=== PATIENT | male | born 1955 | race Caucasian/White ===

== ENCOUNTER 2018-12-08 11:47 | Inpatient (IN) | payer BC ==
[~2018-12-08] VITALS: Ht 182.9 cm; Wt 127.0 kg
[~2018-12-08 11:47] MED LIST: LISI-275 PO
[2018-12-08 12:25] LABS: Basophils # (auto) 0.1 uL; Basophils % (auto) 1.6 % (0.0-2.0); Eosinophils # (auto) 0.4 uL; Eosinophils % (auto) 8.7 % (0.0-7.0); Hematocrit 48.5 % (41.0-53.0); Lymphocytes # (auto) 0.4 uL; Lymphocytes % (auto) 9.4 % (10.0-50.0); Mean Corpuscular Hemoglobin 33.5 pg (28.0-32.0); Mean Corpuscular Volume 101.3 fL (80.0-100.0); Monocytes # (auto) 0.6 uL; Monocytes % (auto) 12.5 % (0.0-12.0); Neutrophils # (auto) 3.1 uL; Neutrophils % (auto) 67.8 % (37.0-80.0); Nucleated Red Blood Cells % 0.1 %; Platelet Count (auto) 206 10^3/uL (140-450); Red Blood Cells 4.79 10^6/uL (4.5-5.90); Red Cell Distribution Width 17.1 % (11.8-14.3); White Blood Cell 4.5 10^3/uL (4.4-10.8)
[2018-12-08 12:40] LABS: Alanine Aminotransferase 34 U/L (16-61); Albumin 3.5 g/dL (3.4-5.0); Anion Gap 6 (5-15); Aspartate Aminotransferase 26 U/L (15-37); BUN/Creatinine Ratio 14.9; Blood Urea Nitrogen 36 mg/dL (7-18); Calcium 8.3 mg/dL (8.5-10.1); Carbon Dioxide 27 mmol/L (21-32); Chloride 101 mmol/L (98-107); GFR African American 35 mL/min; GFR Non-African American 29 mL/min; Glucose 105 mg/dL (74-106); Magnesium 2.7 mg/dL (1.6-2.6); Sodium 134 mmol/L (136-145)
[2018-12-08 12:45] LABS: Alkaline Phosphatase 89 U/L (45-117); Bilirubin, Total 0.5 mg/dL (0.2-1.0); Total Protein 7.5 g/dL (6.4-8.2)
[2018-12-08 12:50] LABS: Potassium 6.2 mmol/L (3.5-5.1)
[2018-12-08 14:38] LABS: Sodium 133 mmol/L (136-145)
[2018-12-08 14:39] LABS: Anion Gap 8 (5-15); BUN/Creatinine Ratio 16.5; Blood Urea Nitrogen 36 mg/dL (7-18); Calcium 8.4 mg/dL (8.5-10.1); Carbon Dioxide 23 mmol/L (21-32); Chloride 102 mmol/L (98-107); GFR African American 39 mL/min; GFR Non-African American 33 mL/min; Glucose 98 mg/dL (74-106)
[2018-12-08 14:42] LABS: Potassium 6.1 mmol/L (3.5-5.1)
[2018-12-08] MEDS ORDERED: SODIUM CHLORIDE 0.9% 1,000 ML IVB ONE (15:16)
[2018-12-08] MEDS ORDERED: SODIUM BICARBONATE 8.4% INJ 50ML SYRINGE IV ONE (15:30)
[2018-12-08] MEDS ORDERED: CALCIUM GLUC 4.65meq/50ml D5AE 50 ML IV ONE (15:30)
[2018-12-08] MEDS ORDERED: FUROSEMIDE 20 MG/2 ML VIAL IV ONE (15:30)
[2018-12-08] MEDS ORDERED: DEXTROSE (50%) 50ML SYRG IV ONE (15:30)
[2018-12-08] MEDS ORDERED: InsuLIN REG 1unit/0.01ml Soln (100units/ml) IV ONE (15:30)
[2018-12-08] MEDS ORDERED: MORPHINE SULFATE 4 MG/ML SYR/VIAL IV ONE (17:00)
[2018-12-08] MEDS ORDERED: ONDANSETRON HCL 4 MG/2 ML VIAL IV ONE (17:00)
[2018-12-08] MEDS ORDERED: cefTRIAXone 1GM/50ML D5W 50 ML IV ONE (18:30)
[2018-12-08] MEDS ORDERED: ONDANSETRON HCL 4 MG/2 ML VIAL IV PRN (19:00)
[2018-12-08] MEDS ORDERED: ACETAMINOPHEN 500 MG TAB PO PRN (19:00)
[2018-12-08] MEDS ORDERED: HYDROcodone-ACET 5/325MG TAB PO PRN (19:00)
[2018-12-08] MEDS ORDERED: ALBUTEROL SULF 2.5 MG/0.5ML(0.5%) NEB SOLN NEB ONE ×2 (19:00→19:30)
[2018-12-08] MEDS ORDERED: NITROGLYCERIN 0.4 MG SL TAB SL PRN (19:00)
[2018-12-08] MEDS ORDERED: MORPHINE SULF INJ 2 MG/ML SYRINGE 1ML IV PRN (19:00)
[2018-12-08] MEDS ORDERED: DEXTROSE (50%) 50ML SYRG IV PRN (19:00)
[2018-12-08 20:21] VITALS: BP 111/60
--- NOTE | 2018-12-08 20:21 | NUR ---
Telemetry admit from [facility] admitted to Telemetry unit. Patient oriented to LOLA REDDY, primary RN, unit, room, bed, and unit policies regarding patient care and visiting hours. Patient now on continuous telemetry monitoring, tele box #25 and telemetry reading on arrival to unit is SR 67 with peaked T wave. at bedside. Patient placed on bedside oxygen, weighed by bedscale and encouraged to call if they need something. Bed locked in lowest position, side rails upx2, call light within reach. All questions and concerns addressed, patient verbalized understanding.
[2018-12-08] MEDS: MORPHINE SULF INJ 2 MG/ML SYRINGE 1ML IV PRN (20:53)
[2018-12-08] MEDS ORDERED: FOLIC ACID 1 MG, MULTIPLE VITAMIN 10 ML, MAGNESIUM SULF SDV 50% 8 MEQ, THIAMINE INJ 100... INJ SCH ×5 (21:00)
[2018-12-08 21:39] VITALS: BP 111/60
[2018-12-08] MEDS: CLINDAMYCIN 300MG IV 50 ML IV SCH (21:49)
[2018-12-08] MEDS: DOCUSATE SOD 100 MG CAP PO SCH (21:49)
[2018-12-08] MEDS: InsuLIN REG 1unit/0.01ml Soln (100units/ml) SC SCH (22:00)
--- NOTE | 2018-12-08 22:00 | NUR ---
Marcella Hospitalist for critical potassium of 5.6. Awaiting call back. Addendum: 12/08/18 at 2315 by LOLA REDDY RN Hospitalist Suraj made aware of critical potassium. Orders placed. Will carry out.
[2018-12-08] MEDS: ACCU-CHEK COMFORT CURVE STRIP VI SCH (22:03)
[2018-12-08] MEDS ORDERED: SODIUM ZIRCONIUM CYCL 10 GM PAK PO ONE (23:15)
[2018-12-09] MEDS ORDERED: FURO20TA3 PO (00:40)
[2018-12-09] MEDS ORDERED: SPIR50TA5 PO (00:40)
[2018-12-09] MEDS ORDERED: MELO1TAB56 PO (00:40)
[2018-12-09] MEDS ORDERED: CLIN150C PO (00:40)
[2018-12-09] MEDS ORDERED: FURO40TA4 PO (00:40)
[2018-12-09] MEDS ORDERED: METO-169 PO (00:40)
[2018-12-09] MEDS: chlordiazePOXIDE HCL 5 MG CAP PO PRN ×3 (02:33→23:42)
[2018-12-09 05:45] VITALS: BP 124/64
[2018-12-09] MEDS: CLINDAMYCIN 300MG IV 50 ML IV SCH ×3 (05:47→23:41)
[2018-12-09] MEDS: InsuLIN REG 1unit/0.01ml Soln (100units/ml) SC SCH ×4 (06:40→22:00)
[2018-12-09] MEDS: ACCU-CHEK COMFORT CURVE STRIP VI SCH ×4 (06:40→23:42)
--- NOTE | 2018-12-09 07:59 | NUR ---
Called Laboratory Regarding 4:00am pending orders for labs to be drawn, they will be coming up now.
[2018-12-09 09:18] VITALS: BP 127/69
[2018-12-09 09:29] LABS: Basophils # (auto) 0.1 uL; Eosinophils # (auto) 0.3 uL; Lymphocytes # (auto) 0.4 uL; Mean Corpuscular Hemoglobin 32.9 pg (28.0-32.0); Mean Corpuscular Hgb Conc. 31.9 g/dL (32.0-36.0)
[2018-12-09 09:35] LABS: Basophils % (auto) 1.4 % (0.0-2.0); Eosinophils % (auto) 5.6 % (0.0-7.0); Hematocrit 48.2 % (41.0-53.0); Hemoglobin 15.4 g/dL (13.5-17.5); Lymphocytes % (auto) 8.6 % (10.0-50.0); Mean Corpuscular Volume 102.9 fL (80.0-100.0); Monocytes # (auto) 0.6 uL; Monocytes % (auto) 11.8 % (0.0-12.0); Neutrophils # (auto) 3.5 uL; Neutrophils % (auto) 72.6 % (37.0-80.0); Nucleated Red Blood Cells % 0.2 %; Platelet Count (auto) 187 10^3/uL (140-450); Red Blood Cells 4.68 10^6/uL (4.5-5.90); Red Cell Distribution Width 17.2 % (11.8-14.3); White Blood Cell 4.9 10^3/uL (4.4-10.8)
[2018-12-09 09:48] LABS: BUN/Creatinine Ratio 16.8; Calcium 8.2 mg/dL (8.5-10.1)
--- NOTE | 2018-12-09 09:57 | NUR ---
Critical Lab Lab reported Critical Potassium of 5.7, will kirby attending MD. Patient is asymptomatic at this time.
[2018-12-09 09:58] LABS: Potassium 5.7 mmol/L (3.5-5.1)
[2018-12-09] MEDS ORDERED: FAMOTIDINE 20 MG TAB PO SCH (10:00)
[2018-12-09] MEDS: ENOXAPARIN SOD 40 MG/0.4 ML SYRINGE SC SCH ×2 (10:00→11:00)
[2018-12-09 10:01] LABS: Urine WBC None Seen /hpf (0 - 3)
--- NOTE | 2018-12-09 10:10 | NUR ---
Pageania Syed and was transferred to his phone Received orders, read back and verified regarding critical lab value for potassium.
[2018-12-09] MEDS ORDERED: FUROSEMIDE 20 MG/2 ML VIAL IV ONE (10:15)
[2018-12-09 10:18] LABS: Urine Bacteria NONE SEEN /hpf (None Seen); Urine Blood Negative /uL (Negative)
[2018-12-09] MEDS ORDERED: CALCIUM GLUC 4.65meq/50ml D5AE 50 ML IV ONE (10:30)
[2018-12-09] MEDS ORDERED: SODIUM BICARBONATE 8.4 % INJ 50ML VIAL IV ONE (10:30)
[2018-12-09] MEDS: DOCUSATE SOD 100 MG CAP PO SCH ×2 (10:59→23:41)
[2018-12-09] MEDS: NICOTINE 21MG/24 HR TOPICAL PATCH TD SCH ×2 (11:01→22:23)
--- NOTE | 2018-12-09 11:30 | NUR ---
WOUND CARE NOTE: IN TO SEE PATIENT AT THIS TIME PER WOUND CARE CONSULT REQUEST. PATIENT WAS NOTED UPON ADMIT TO HAVE WOUNDS TO BLE. WOUND PHOTOS TAKEN AT THAT TIME BY BEDSIDE NURSE FOR REFERENCE. PATIENT ADMITTED TO [facility] WITH DIAGNOSIS OF BLE CELLULITIS. CURRENT RON SCORE IS 18. PATIENT IS AMBULATORY, CAN SELF TURN/REPOSITION SELF. PATIENT NOTED TO HAVE PITTING EDEMA (2+) TO BILATERAL FEET. EDEMA WITH INDURATION NOTED TO BILATERAL CALVES. HE HAS ERYTHEMA. MULTIPLE CLOSED BLISTERS NOTED. THERE IS AN OPEN, WEEPING STASIS ULCER NOTED TO EACH CALF. WOUNDS ARE CHRONIC, SPONTANEOUSLY OPEN/CLOSING, PER SPOUSE. WOUNDS ARE DRAINING SEROUS DRAINAGE IN LIGHT AMOUNTS, WOUNDS ARE PARTIAL THICKNESS AT THIS TIME. CLEANSED WITH NS, PATTED DRY WITH STERILE GAUZE. APPLIED THERAHONEY GAUZE. COVERED WITH OPTIFOAM AG, WRAPPED BOTH FEET/LEGS WITH KERLIX, STOCKINETTE. ELEVATED BOTH LEGS WITH PILLOWS, ELEVATED FOOT LEVEL ON BED. SKIN/WOUND CARE PLAN IMPLEMENTED. RECOMMEND: Q 3 DAY/PRN DRESSING CHANGE TO BLE WOUNDS, ELEVATION OF BOTH LEGS UP ONTO PILLOWS, DIETARY CONSULT, SKIN/WOUND CARE PLAN, CONTINUED MONITORING BY WOUND CARE TEAM. Addendum: 12/09/18 at 1834 by Dorothy Wood RN Amended: Links added.
--- NOTE | 2018-12-09 11:50 | NUR ---
Patient IV is causing pain, will have electronic console display operator attempt the IV.
[2018-12-09 13:00] VITALS: BP 131/66
--- NOTE | 2018-12-09 13:06 | NUR ---
Nephrology Consult Called in again Per request of Dr. Syed, the corporate secretary Erick called in the consult, stated "Dr. Simons is avionics systems repairer today". Notified Dr. Syed.
--- NOTE | 2018-12-09 13:58 | NUR ---
PICC/Midline nurse service requested Family has been informed that a midline will be placed for better IV access. PICC line nurse called to say she will be up after her next patient.
[2018-12-09 15:44] LABS: Phosphorus 4.3 mg/dL (2.5-4.90); Uric Acid 9.7 mg/dL (3.5-7.2)
--- NOTE | 2018-12-09 16:29 | NUR ---
Midline Placement: Patient educated on need for midline placement. All risks and benefits explained and all questions and concerns addresses prior to procedure. 18g/10cm midline inserted via right basilic vein using Ultrasound. Sterile technique utilized. Blood return obtained from the lumen and flushed easily with NS using proper technique. Midline secured with saline lock; biodisc and occlusive dressing applied. Primary RN notified. Midline lot # [id number]. x1 attempt
[2018-12-09] MEDS: BUMETANIDE 1mg/4ml VIAL (0.25mg/ml) IV SCH ×2 (16:47→18:00)
[2018-12-09 17:00] VITALS: BP 117/82
[2018-12-09 17:07] LABS: Creatinine, Urine 56 mg/dL (30.0-125.0); Sodium Urine 81 mmol/L (40-220)
--- NOTE | 2018-12-09 17:27 | NUR ---
Discontinued IV to the left hand, pressure held, IV catheter intact, pressure dressing applied. Midline to the right upper arm is being used for IV access
[2018-12-09 17:36] LABS: Alcohol, Urine < 3.0 mg/dL (0-5); Amphetamine Screen, Urine NEGATIVE (NEGATIVE); Barbiturate Scree,Urine NEGATIVE (NEGATIVE); Benzodiazephine Screen, Urine NEGATIVE (NEGATIVE); Cannabinoid Screen, Urine NEGATIVE (NEGATIVE); Cocaine Screen, Urine NEGATIVE (NEGATIVE); Opiate Scree,Urine NEGATIVE (NEGATIVE); Phencyclidine Screen, Urine NEGATIVE (NEGATIVE)
--- NOTE | 2018-12-09 18:00 | NUR ---
Patient Clindamycin dose was missed due to lack of IV access. Will notify Noc RN to resume now that there is IV access.
--- NOTE | 2018-12-09 19:00 | NUR ---
Opening Shift Note Assumed care of patient, awake and alert sitting at the edge of the bed with mild shortness of breath at rest. O2 saturation at 92% on 4L nasal cannula. Instructed on POC and to call for assist PRN, will continue to monitor for changes Q1hr and PRN. Side rails up x2. Bed locked in lowest position. Call light within reach. at bedside.
[2018-12-09 22:00] VITALS: BP 107/84
[2018-12-10] VITALS (89 sets, daily range): BP systolic 78–155; BP diastolic 26–84
--- NOTE | 2018-12-10 00:22 | NUR ---
Low O2 saturation Patient sitting on the side of the bed with nasal cannula removed. Shortness of breath noted with o2 saturation at 78% on RA. Placed back nasal cannula on patient and increased oxygen to 5L nasal cannula. 02 saturation up to 88%. Will page hospitalist to report patient status.
[2018-12-10] MEDS ORDERED: methylPREDNISolone SOD SUCC 125 MG/2 ML VL IV ONE (00:30)
[2018-12-10] MEDS ORDERED: ALBUTEROL SULF 2.5 MG/0.5ML(0.5%) NEB SOLN NEB PRN (00:30)
--- NOTE | 2018-12-10 00:30 | NUR ---
Hospitalist called/paged [employer]CIAL C[employer] MANAGER Chico Ruelas called re: patient respiratory status . Waiting for call back. Continue care.
--- NOTE | 2018-12-10 00:32 | NUR ---
Spoke with Hospitalist HANSA Ruelas. Updated on patient status. Received order of albuterol 2.5 Q4H PRN and solumedrol 125mg IV once. Continue care.
--- NOTE | 2018-12-10 02:40 | NUR ---
Rounds Patient laying in bed with nasal cannula off. O2 saturation at 78% on RA. Replaced patient back to oxymyzer at 8L. O2 saturation remains in the 80's. Will update Hospitalist on patient status.
--- NOTE | 2018-12-10 02:44 | NUR ---
Spoke to hospitalist HANSA Ruelas regarding patient respiratory status. Received STAT Chest xray and ABG. Continue care
--- NOTE | 2018-12-10 02:45 | NUR ---
X-ray tech at bedside
--- NOTE | 2018-12-10 02:46 | NUR ---
Respiratory at bedside for ABG
[2018-12-10] MEDS ORDERED: ETOMIDATE (2MG/ML) 20ML VIAL IV ONE ×2 (03:24→03:26)
[2018-12-10] MEDS ORDERED: SUCCINYLCHOLINE CHLORIDE 20 MG/ML 10ML VIAL IV ONE ×2 (03:24→03:27)
[2018-12-10] MEDS ORDERED: ROCURONIUM 10MG/ML 10ML VIAL IV ONE (03:29)
--- NOTE | 2018-12-10 03:37 | NUR ---
Intubated Patient intubated on floor by HANSA Ruelas.
--- NOTE | 2018-12-10 03:37 | NUR ---
ATTEMPTED BIPAP INTERVENTION PRIOR TO INTUBATION. PT WORE BIPAP FOR A COUPLE OF MINUTES BEFORE REMOVING THE MASK. PT CONFUSED AND AGITATED. PT UNABLE TO VENTILATE EFFICIENTLY AND REFUSED BIPAP. PT INTUBATED BY HANSA GALVAN WITH AN 8.0 ETT AND SECURED BY CASSIDY AT 25 UPPER LIP. CUFF PRESSURE IS FIRM. TUBE PLACEMENT CONFIRMED BY BILATERAL BREATH SOUNDS AND CHEST RISE, POSITIVE CAPNOMETER COLOR CHANGE.
[2018-12-10] MEDS ORDERED: PROPOFOL 100 ML IV ONE (03:40)
--- NOTE | 2018-12-10 03:55 | NUR ---
Endorsed care to ICU nurse Latonia.
--- NOTE | 2018-12-10 03:56 | NUR ---
Transferred patient to ICU
[2018-12-10] MEDS ORDERED: fentaNYL Drip 2500mCg/250mlNS 0 ML IV ONE (04:01)
[2018-12-10] MEDS ORDERED: MIDAZOLAM DRIP 50 mg/50mL 50 ML IV ONE (04:03)
[2018-12-10] MEDS ORDERED: MIDAZOLAM DRIP 50 mg/50mL 50 ML IV SCH (04:04)
--- NOTE | 2018-12-10 04:07 | NUR ---
ICU pt. intubated after admit called regarding patient's respiratory status. Order received for intubation. Respiratory Therapist notified and at bedside. Patient/Family instructed on need for intubation and possible sedation while on ventilator. Patient intubated by RACHELL GALVAN with .08 ETT, 25 at the lip, and OGT/NGT placed. Medications given as follows:
[2018-12-10 04:12] LABS: Eosinophils # (auto) 0.2 uL; Hemoglobin 16.4 g/dL (13.5-17.5); Lymphocytes # (auto) 0.9 uL; Lymphocytes % (auto) 14.1 % (10.0-50.0); Neutrophils # (auto) 4.8 uL; Nucleated Red Blood Cells % 0.1 %; White Blood Cell 6.1 10^3/uL (4.4-10.8)
[2018-12-10 04:14] LABS: Basophils # (auto) 0.1 uL; Basophils % (auto) 0.8 % (0.0-2.0); Eosinophils % (auto) 2.7 % (0.0-7.0); Hematocrit 50.4 % (41.0-53.0); Mean Corpuscular Hemoglobin 33.3 pg (28.0-32.0); Mean Corpuscular Hgb Conc. 32.6 g/dL (32.0-36.0); Monocytes # (auto) 0.2 uL; Monocytes % (auto) 3.7 % (0.0-12.0); Neutrophils % (auto) 78.7 % (37.0-80.0); Platelet Count (auto) 191 10^3/uL (140-450); Red Blood Cells 4.94 10^6/uL (4.5-5.90); Red Cell Distribution Width 17.4 % (11.8-14.3)
[2018-12-10 04:34] LABS: Albumin 3.6 g/dL (3.4-5.0); Calcium 8.6 mg/dL (8.5-10.1)
[2018-12-10 04:36] LABS: BUN/Creatinine Ratio 11.9
[2018-12-10 04:39] LABS: Bilirubin, Total 0.5 mg/dL (0.2-1.0)
[2018-12-10 04:51] LABS: Potassium 5.6 mmol/L (3.5-5.1)
--- NOTE | 2018-12-10 05:04 | NUR ---
TIDAL VOLUME INCREASED TO 600 PER HANSA GALVAN.
--- NOTE | 2018-12-10 05:10 | NUR ---
IV insertion IV access obtained, via clean sterile technique by inserting 20 gauge catheter at LEFT HAND after 1 attempt(s). IV secured properly. No trauma to site. Patient tolerated well. NOTE:
[2018-12-10] MEDS: PROPOFOL 100 ML IV SCH ×4 (05:16→23:33)
[2018-12-10] MEDS: MIDAZOLAM DRIP 50 mg/50mL 50 ML IV SCH ×4 (05:16→19:16)
[2018-12-10] MEDS: CLINDAMYCIN 300MG IV 50 ML IV SCH (06:01)
[2018-12-10] MEDS: BUMETANIDE 1mg/4ml VIAL (0.25mg/ml) IV SCH ×2 (06:01→18:12)
[2018-12-10] MEDS: InsuLIN REG 1unit/0.01ml Soln (100units/ml) SC SCH ×4 (07:00→22:00)
[2018-12-10] MEDS: ACCU-CHEK COMFORT CURVE STRIP VI SCH ×4 (07:00→22:00)
[2018-12-10] MEDS: IPRATROPIUM BROM 0.5 MG/2.5ML INH SOL NEB SCH ×3 (07:02→18:48)
[2018-12-10] MEDS: ALBUTEROL SULF 2.5 MG/0.5ML(0.5%) NEB SOLN NEB SCH ×3 (07:02→18:48)
--- NOTE | 2018-12-10 07:12 | NUR ---
SHIFT OPENING NOTE PATIENT ON MECHANICAL VENTILATOR, SEDATED WITH PROPOFOL AND VERSED, LUNGS CLEAR THROUGHOUT, HR 70'S SR WITH NO ECTOPY, NO VASOPRESSORS, PUPILS 3 EQUAL ROUND AND REACTIVE TO LIGHT, POSITIVE COUGH AND GAG, MITTENS ON HANDS FOR SAFETY/ ABDOMEN LARGE, SOFT, AND NONTENDER, UMBILICAL HERNIA NOTED, NGT CLAMPED, CALL DRAINING CLEAR, YELLOW URINE, BAG HUNG BELOW BLADDER FREE OF KINKS, SCD'S BILATERALLY, SKIN INTEGRITY SEE INTERVENTION
--- NOTE | 2018-12-10 09:08 | NUR ---
DR. WILSON AT BEDSIDE
--- NOTE | 2018-12-10 09:12 | NUR ---
DR. TY AT BEDSIDE SPOKE WITH IN DETAIL. ALL QUESTIONS AND CONCERNS ADDRESSED AT THIS TIME
--- NOTE | 2018-12-10 09:21 | NUR ---
FAMILY AT BEDSIDE. UPDATED ON PATIENT STATUS. ALL QUESTIONS AND CONCERNS ADDRESSED AT THIS TIME
[2018-12-10] MEDS ORDERED: VANCOMYCIN 1GM/250ML 250 ML IV ONE (09:30)
[2018-12-10] MEDS ORDERED: VANCOMYCIN PER PHARMACY 0 MG IV SCH (09:30)
[2018-12-10] MEDS: chlordiazePOXIDE HCL 5 MG CAP PO PRN (09:46)
[2018-12-10] MEDS: NICOTINE 21MG/24 HR TOPICAL PATCH TD SCH (09:47)
[2018-12-10] MEDS: SODIUM ZIRCONIUM CYCL 10 GM PAK PO SCH ×2 (09:48→18:20)
[2018-12-10] MEDS: DOCUSATE SOD 100 MG CAP PO SCH ×2 (09:48→22:00)
[2018-12-10] MEDS ORDERED: PANTOPRAZOLE 40 MG/10 ML VIAL INJ IV SCH (10:00)
[2018-12-10] MEDS: ENOXAPARIN SOD 150 MG/1 ML SYRINGE SC SCH ×2 (10:38→21:38)
--- NOTE | 2018-12-10 11:17 | NUR ---
NUTRITION CONSULT/ASSESSMENT NOTES Please refer to link notes of nutrition screen form filed under the intervention section of the plan of care for further details. Est. Needs: 1950 kcal to 2500 kcal (14-18 kcal/kgBW), 81 gms to 113 gms pro (1.0-1.4 gms/kgIBW: 81 kg for wound healing). Will continue to monitor pertinent labs and reassess nutrient need prn Thank you for this consult. Addendum: 12/10/18 at [address]én[address] Amended: Links added.
[2018-12-10] MEDS: PIPERACILLIN-TAZOB 3.375GM 100 ML IV SCH ×3 (11:29→23:32)
[2018-12-10] MEDS: FAMOTIDINE (10MG/ML) 2ML VL IV SCH (11:33)
--- NOTE | 2018-12-10 12:00 | NUR ---
COMFORT PATIENT REPOSITIONED AND ORAL CARE PERFORMED. PATIENT TOLERATED WELL
[2018-12-10] MEDS: D5W 5% IV SCH ×2 (15:10→21:38)
[2018-12-10] MEDS: CLINDAMYCIN IV SCH ×2 (15:10→21:38)
--- NOTE | 2018-12-10 15:39 | NUR ---
DRESSING CHANGED ORDERED
--- NOTE | 2018-12-10 16:20 | NUR ---
PARTIAL LINEN CHANGE PERFORMED AT THIS TIME
[2018-12-10] MEDS: VANCOMYCIN 1GM/250ML 250 ML IV SCH (18:12)
--- NOTE | 2018-12-10 18:40 | NUR ---
DR. JOHNSON AT [facility] Addendum: 12/10/18 at 1841 by Ariel Mckeon RN WRONG PATIENT
--- NOTE | 2018-12-10 19:45 | NUR ---
OPEN ASSUMED CARE OF MALE PT ORALLY INTUBATED. PT SEDATED ON DIPRIVAN GTT AND VERSED GTT. PT OPENS EYES TO VERBAL AND LIGHT TACTILE STIMULI. PT WITHDRAWS TO PAIN OTHERWISE NON RESPONSIVE. SR ON STONE RIGGER. R. UPPER ARM MIDLINE IN PLACE INTACT AND PATENT WITH CDI DRESSING. 20 G IV TO L. HAND WITH NS AT 10ML/HR TKO INTACT AND PATENT WITH CDI DRESSING.OGT IN PLACE CLAMPED. PLACEMENT VERIFIED. CALL TO GRAVITY DRAINING CLEAR YELLOW URINE. BARBARA CALVES WITH REDNESS/WARMTH WITH KERLIX WRAP OVER DRESSINGS TO VENOUS STASIS ULCERS PRESENT TO BARBARA CALVES. DRESSINGS CDI. NO INDICATION OF PAIN OBSERVED. BED IN LOWEST LOCKED POSITION. SIDE RAILS UP X 2. PT IN FULL VIEW OF RN STATION. WILL CONTINUE TO MONITOR.
--- NOTE | 2018-12-10 20:00 | NUR ---
PT TO UNIT FOR VISIT/BELONGINGS PT'S MAY TO UNIT FOR VISIT. UPDATED REGARDING PLAN OF CARE. PT REQUESTS THAT PT'S WEDDING BAND BE REMOVED PT HANDS SOMEWHAT EDEMATOUS. RING REMOVED WITH NO TRAUMA. PT MAY TOOK YELLOW COLORED METAL WEDDING BAND HOME. ALL QUESTIONS AND CONCERNS ADDRESSED.
[2018-12-11] VITALS (97 sets, daily range): BP systolic 113–165; BP diastolic 56–90
[2018-12-11] MEDS: ALBUTEROL SULF 2.5 MG/0.5ML(0.5%) NEB SOLN NEB SCH ×4 (00:24→18:38)
[2018-12-11] MEDS: IPRATROPIUM BROM 0.5 MG/2.5ML INH SOL NEB SCH ×4 (00:24→18:38)
[2018-12-11] MEDS: MIDAZOLAM DRIP 50 mg/50mL 50 ML IV SCH ×4 (00:42→15:19)
[2018-12-11] MEDS: SODIUM ZIRCONIUM CYCL 10 GM PAK PO SCH (02:24)
[2018-12-11] MEDS: VANCOMYCIN 1GM/250ML 250 ML IV SCH ×2 (02:24→10:00)
[2018-12-11] MEDS: CLINDAMYCIN IV SCH ×3 (05:00→21:57)
[2018-12-11] MEDS: D5W 5% IV SCH ×3 (05:00→21:57)
--- NOTE | 2018-12-11 05:00 | NUR ---
HYGIENE PT GIVEN SPONGE BATH. PARTIAL LINEN CHANGE AND GOWN CHANGE PROVIDED. ORAL CARE PROVIDED. PT REPOSITIONED WITH PILLOWS USED TO OFFLOAD BONY PROMINENCES.
[2018-12-11] MEDS: PROPOFOL 100 ML IV SCH ×6 (05:24→22:44)
[2018-12-11] MEDS: BUMETANIDE 1mg/4ml VIAL (0.25mg/ml) IV SCH ×2 (05:25→17:51)
[2018-12-11] MEDS: PIPERACILLIN-TAZOB 3.375GM 100 ML IV SCH ×3 (05:26→19:54)
[2018-12-11 06:07] LABS: Calcium 8.8 mg/dL (8.5-10.1); Potassium 4.3 mmol/L (3.5-5.1)
[2018-12-11 06:10] LABS: BUN/Creatinine Ratio 13.2
[2018-12-11] MEDS: InsuLIN REG 1unit/0.01ml Soln (100units/ml) SC SCH ×4 (06:27→21:57)
[2018-12-11] MEDS: ACCU-CHEK COMFORT CURVE STRIP VI SCH ×4 (06:27→21:57)
--- NOTE | 2018-12-11 07:00 | NUR ---
Opening Shift Note Assumed care of patient, sedated and intubated. No S/S of distress SOB or pain. Bed locked, in lowest position.
--- NOTE | 2018-12-11 08:00 | NUR ---
DR Joshua TY AT BEDSIDE, GAVE NEW ORDERS, STATED HE WILL PLACE PULMONOLOGY CONSULT AND RN TO PLACE DIETARY CONSULT FOR TUBE FEEDING RECOMMENDATION.
[2018-12-11] MEDS: DOCUSATE SOD 100 MG CAP PO SCH ×2 (10:00→21:57)
[2018-12-11] MEDS: ENOXAPARIN SOD 150 MG/1 ML SYRINGE SC SCH ×2 (10:24→21:57)
[2018-12-11] MEDS: FAMOTIDINE (10MG/ML) 2ML VL IV SCH (10:24)
[2018-12-11] MEDS: NICOTINE 21MG/24 HR TOPICAL PATCH TD SCH (10:28)
--- NOTE | 2018-12-11 13:58 | NUR ---
MAY, , CALLED WITH PASSWORD, REGARDING PATIENT CONDITION, UPDATED ON PLAN OF CARE AND ALL QUESTIONS ADDRESSED.
[2018-12-11] MEDS ORDERED: VANCOMYCIN 1,250 MG in D5W 5% 250 ML IV SCH (15:00)
--- NOTE | 2018-12-11 19:00 | NUR ---
OPEN ASSUMED CARE, FULL ASSESSMENT DONE; SEE INTERVENTIONS.
[2018-12-12] VITALS (60 sets, daily range): BP systolic 111–166; BP diastolic 66–104
[2018-12-12] MEDS: PIPERACILLIN-TAZOB 3.375GM 100 ML IV SCH ×4 (00:06→18:21)
[2018-12-12] MEDS: IPRATROPIUM BROM 0.5 MG/2.5ML INH SOL NEB SCH ×4 (00:22→18:27)
[2018-12-12] MEDS: ALBUTEROL SULF 2.5 MG/0.5ML(0.5%) NEB SOLN NEB SCH ×4 (00:22→18:27)
[2018-12-12 03:56] LABS: Basophils # (auto) 0.1 uL; Basophils % (auto) 1.2 % (0.0-2.0); Eosinophils # (auto) 0.1 uL; Eosinophils % (auto) 2.5 % (0.0-7.0); Hematocrit 46.3 % (41.0-53.0); Hemoglobin 15.7 g/dL (13.5-17.5); Lymphocytes # (auto) 0.5 uL; Lymphocytes % (auto) 9.2 % (10.0-50.0); Mean Corpuscular Hemoglobin 33.4 pg (28.0-32.0); Mean Corpuscular Hgb Conc. 33.8 g/dL (32.0-36.0); Mean Corpuscular Volume 98.8 fL (80.0-100.0); Monocytes # (auto) 0.7 uL; Monocytes % (auto) 12.4 % (0.0-12.0); Neutrophils # (auto) 4.3 uL; Neutrophils % (auto) 74.7 % (37.0-80.0); Nucleated Red Blood Cells % 0.1 %; Platelet Count (auto) 193 10^3/uL (140-450); Red Blood Cells 4.69 10^6/uL (4.5-5.90); Red Cell Distribution Width 17.7 % (11.8-14.3); White Blood Cell 5.8 10^3/uL (4.4-10.8)
[2018-12-12 04:15] LABS: Potassium 3.8 mmol/L (3.5-5.1)
[2018-12-12 04:19] LABS: BUN/Creatinine Ratio 14.3; Calcium 8.4 mg/dL (8.5-10.1)
--- NOTE | 2018-12-12 04:51 | NUR ---
CARES FULL BATH AND LINEN CHANGE DONE, NO NEW SKIN ISSUES ASSESSED. BARBARA LOWER EXT DSGs REMAIN CDI. CONTINUE CARE.
[2018-12-12] MEDS ORDERED: VANCOMYCIN 1,250 MG in D5W 5% 250 ML IV SCH (05:00)
[2018-12-12] MEDS: CLINDAMYCIN IV SCH ×3 (06:12→22:35)
[2018-12-12] MEDS: BUMETANIDE 1mg/4ml VIAL (0.25mg/ml) IV SCH (06:12)
[2018-12-12] MEDS: D5W 5% IV SCH ×3 (06:12→22:35)
[2018-12-12] MEDS: ACCU-CHEK COMFORT CURVE STRIP VI SCH ×4 (07:13→22:35)
[2018-12-12] MEDS: InsuLIN REG 1unit/0.01ml Soln (100units/ml) SC SCH ×4 (07:13→22:35)
--- NOTE | 2018-12-12 07:36 | NUR ---
REPORT REPORT RECEIVED FROM JOSÉ ANTONIO RNTIERRA. BEDSIDE CHECK DONE. PT RESTING IN BED WITH NO DISTRESS NOTED, ON THE VENTILATOR AND SEDATED ON VERSED AND DIPRIVAN, WITH VSS. CONTINUE TO MONITOR.
--- NOTE | 2018-12-12 07:36 | NUR ---
REPORT CARE ENDORSED TO BABAK YEN.
--- NOTE | 2018-12-12 07:42 | NUR ---
ASSESSMENT PT LAYING IN BED WITH EYES CLOSED. DOES NOT RESPOND TO VERBAL STIMULI BUT + COUGH AND GAG WITH SUCTIONING. NO SPONTANEOUS MOVEMENT NOTED. SEDATED WHILE ON THE VENTILATOR. VENT SETTINGS: 8 FR ETT/27 AT THE LIP, TV 600, AC 16, 45% FIO2 AND PEEP OF 5. LUNGS CLEAR THROUGHOUT. O2 SAT OF 95%. SUCTIONED VIA ETT FOR SMALL THIN CLEAR FLUID AND ORALLY FOR SMALL AMOUNT OF THIN WHITE FLUID. TELE SR [address] IN LEAD II AND ELEVATED ST IN LEAD V. PALPABLE PULSES TO ALL EXTREMITIES. SCDS TO BLE. GENERALIZED EDEMA NOTED. ABD SOFT WITH HYPOACTIVE BOWEL SOUNDS NOTED. OGT CLAMPED, WITH + PLACEMENT AND NO RESIDUAL NOTED. LAST BM WAS 12/09. CALL CATHETER DRAINING CLEAR YELLOW URINE. SCAB NOTED OT LEFT KNEE. DRESSING TO BLE WITH STOCKINETTE. SKIN IS BLANCHABLE RED ABOVE AND BELOW DRESSINGS. OPTIFOAM DRESSING IN PLACE TO SACRUM, SKIN CLEAR UNDERNEATH. TURNED FOR COMFORT TO HIS RIGHT SIDE. CONTINUE TO MONITOR.
--- NOTE | 2018-12-12 07:42 | NUR ---
PT TEACHING PT UNABLE TO BENEFIT FROM PT TEACHING AT THIS TIME HE IS SEDATED WHILE ON THE VENTILATOR. Addendum: 12/12/18 at 1132 by Sylwia Gannon RN Amended: Links added.
--- NOTE | 2018-12-12 09:18 | NUR ---
Respiratory note: PATIENT SPO2 HAS MAINTAINED 95-98%. TITRATED O2 FROM 45% TO 35%. PATIENT TOLERATING CHANGE WELL.
--- NOTE | 2018-12-12 09:50 | NUR ---
PT REPOSITIONED FOR COMFORT AND REASSESSED. ADMINISTERED SCHEDULED MEDS. PT'S AT THE BEDSIDE AND UPDATED ON THE PT'S CONDITION AND POC.
[2018-12-12] MEDS: FAMOTIDINE (10MG/ML) 2ML VL IV SCH (10:11)
[2018-12-12] MEDS: DOCUSATE SOD 100 MG CAP PO SCH ×2 (10:11→22:35)
[2018-12-12] MEDS: ENOXAPARIN SOD 150 MG/1 ML SYRINGE SC SCH (10:11)
[2018-12-12] MEDS: MIDAZOLAM DRIP 50 mg/50mL 50 ML IV SCH ×2 (10:11→15:03)
[2018-12-12] MEDS: NICOTINE 21MG/24 HR TOPICAL PATCH TD SCH (10:31)
--- NOTE | 2018-12-12 10:59 | NUR ---
Respiratory note: CHARTING CORRECTION ETT IS SECURED AT 27 AT THE LIP. NOT 22 CHARTED AT 0643, 0810, AND AT 1011.
--- NOTE | 2018-12-12 11:03 | NUR ---
Nutrition Consult and Follow-up Notes Wt.: 138.1 kg today. Pt's room curtain's closed, RN at bedside when rounded earlier. Pt remains intubated, sedated with with Propofol @ 20.895 ml/hr providing 552 kcal from Fat. Pt's currently NPO, noted likely with an order for start on alternate nutrition support and for active Wound and Nephrology consults. Est. Needs: 1950 kcal to 2500 kcal (14-18 kcal/kgBW), 81 gms to 113 gms pro (1.0-1.4 gms/kgIBW: 81 kg for wound healing). Will continue to monitor pertinent labs and reassess nutrient need prn Labs: BUN 22 H, Cr 1.54 H, Ca 8.4 L; Uric acid 9.7 H, HbA1c 5.8 wnl Skin: Gadiel scale 13, mod risk, pt's L, R lower extremities 2 open wounds per lower school music teacher. Pls refer to drying oven attendant's notes (12/09/18) for further details re: tx plans. GI: Pt's no bowel activity since 12/09/18 per lower school music teacher. PES: Altered nutrition related lab values r/t acute/chronic medical condition aeb hyperglycemia, hypercapnia, hyperkalemia, elev. Cr, Phos, Uric acid Increased nutrient needs r/t current/chronic medical condition aeb intubated, sedated, wound healing, NPO. Obesity r/t food intake more than body requirement aeb 172% IBW, BMI 41.7 kg/m2 and increased body adiposity Will continue to monitor NPO status, skin status, pertinent labs and weight trend. F/u in 2 to 3 days. Rec.: 1.) If still NPO, consider alternate nutrition/ EN support with formula choice of Jevity 1.2 Miguel @ 60 ml/hr goal rate as tolerated while on current rate of Propofol if medically appropriate. 2.) Consider daily MVI with minerals and Asc acid 500 mgs BID prn. 3.) Advance gradually to oral diet when medically appropriate. 4.) Refer to RD for further nutrition education and weight monitoring upon discharged. 5.) Continue current plan of care. Thank you for this consult
[2018-12-12] MEDS ORDERED: Jevity 1.2 Cal/Fiber 1 Liter GT SCH (11:45)
[2018-12-12] MEDS: PROPOFOL 100 ML IV SCH ×2 (12:02→15:53)
--- NOTE | 2018-12-12 12:39 | NUR ---
Respiratory note: TITRATED O2 FROM 35% TO 30%. PATIENT TOLERATING O2 CHANGE WELL. RN MADE AWARE OF CHANGE.
[2018-12-12] MEDS ORDERED: PANTOPRAZOLE 40 MG/10 ML VIAL INJ IV ONE (19:00)
--- NOTE | 2018-12-12 20:00 | NUR ---
CHECKING OGT RESIDUAL AND IT WAS 15ML DARK BLOODY-REPLACED BACK AND WILL CHECK LATER.
--- NOTE | 2018-12-12 22:35 | NUR ---
CHECKING RESIDUAL FROM OGT-DARK BLOODY RESIDUAL AT 40ML/CONNECTED TO LOW WALL CONTINUOUS SUCTION (40MMHG) AND WILL CONT. TO MONITOR; . AWARE.
--- NOTE | 2018-12-12 22:59 | NUR ---
LAB AT BEDSIDE TO DRAW CBC; WILL AWAIT RESULTS.
[2018-12-12 23:29] LABS: Basophils # (auto) 0.1 uL; Eosinophils # (auto) 0.2 uL; Eosinophils % (auto) 3.2 % (0.0-7.0); Hematocrit 48.2 % (41.0-53.0); Hemoglobin 15.8 g/dL (13.5-17.5); Lymphocytes # (auto) 0.4 uL; Lymphocytes % (auto) 8.1 % (10.0-50.0); Mean Corpuscular Hemoglobin 32.4 pg (28.0-32.0); Mean Corpuscular Hgb Conc. 32.7 g/dL (32.0-36.0); Mean Corpuscular Volume 98.9 fL (80.0-100.0); Monocytes # (auto) 0.8 uL; Monocytes % (auto) 15.6 % (0.0-12.0); Neutrophils # (auto) 3.8 uL; Neutrophils % (auto) 72.1 % (37.0-80.0); Nucleated Red Blood Cells % 0.1 %; Platelet Count (auto) 184 10^3/uL (140-450); Red Blood Cells 4.87 10^6/uL (4.5-5.90); White Blood Cell 5.3 10^3/uL (4.4-10.8)
[2018-12-13] VITALS (95 sets, daily range): BP systolic 106–149; BP diastolic 62–90
[2018-12-13] MEDS: ALBUTEROL SULF 2.5 MG/0.5ML(0.5%) NEB SOLN NEB SCH ×4 (00:39→18:27)
[2018-12-13] MEDS: IPRATROPIUM BROM 0.5 MG/2.5ML INH SOL NEB SCH ×4 (00:39→18:27)
[2018-12-13] MEDS: PIPERACILLIN-TAZOB 3.375GM 100 ML IV SCH ×4 (00:44→17:53)
[2018-12-13 04:05] LABS: Hematocrit 46.1 % (41.0-53.0); Hemoglobin 15.5 g/dL (13.5-17.5)
[2018-12-13] MEDS: CLINDAMYCIN IV SCH (06:00)
[2018-12-13] MEDS: D5W 5% IV SCH (06:00)
[2018-12-13] MEDS: ACCU-CHEK COMFORT CURVE STRIP VI SCH ×4 (07:00→22:11)
[2018-12-13] MEDS: InsuLIN REG 1unit/0.01ml Soln (100units/ml) SC SCH ×4 (07:00→22:00)
--- NOTE | 2018-12-13 09:00 | NUR ---
DR. Marlene TY HERE TO SEE PATIENT. SEE MD NOTES AND EMR FOR ANY NEW ORDERS.
--- NOTE | 2018-12-13 09:30 | NUR ---
I spoke with Marie at [facility] [phone] to give her a verbal update on the plan of care for this patient.
--- NOTE | 2018-12-13 09:47 | NUR ---
DR. Krystle TY HERE TO SEE PATIENT. SEE MD NOTES AND EMR FOR ANY NEW ORDERS.
[2018-12-13] MEDS: MIDAZOLAM DRIP 50 mg/50mL 50 ML IV SCH (09:59)
[2018-12-13] MEDS: PROPOFOL 100 ML IV SCH ×2 (09:59→17:53)
[2018-12-13] MEDS: DOCUSATE SOD 100 MG CAP PO SCH ×2 (09:59→22:00)
[2018-12-13] MEDS: NICOTINE 21MG/24 HR TOPICAL PATCH TD SCH (09:59)
[2018-12-13] MEDS: FAMOTIDINE (10MG/ML) 2ML VL IV SCH (10:00)
[2018-12-13] MEDS ORDERED: PANTOPRAZOLE 40 MG/10 ML VIAL INJ IV SCH (10:00)
[2018-12-13 12:23] LABS: Hematocrit 46.1 % (41.0-53.0); Hemoglobin 14.9 g/dL (13.5-17.5)
[2018-12-13] MEDS: VANCOMYCIN 1,500 MG in D5W 5% 250 ML IV SCH (12:53)
[2018-12-13 13:07] LABS: INR 0.97 (0.9-1.15); Partial Thromboplastin Time 26.7 sec (23.64-32.05)
--- NOTE | 2018-12-13 13:50 | NUR ---
DR. ZACARIAS HERE TO SEE PATIENT. SEE MD NOTES AND EMR FOR ANY NEW ORDERS.
--- NOTE | 2018-12-13 15:05 | NUR ---
CONSENTS OBTAINED FOR EGD SCHEDULED TOMORROW 12/14/18.
[2018-12-13 18:13] LABS: Hematocrit 46.1 % (41.0-53.0); Hemoglobin 14.9 g/dL (13.5-17.5)
[2018-12-13] MEDS: PANTOPRAZOLE 40 MG/10 ML VIAL INJ IV SCH (22:10)
[2018-12-14] VITALS (88 sets, daily range): BP systolic 109–151; BP diastolic 63–86
[2018-12-14] MEDS: IPRATROPIUM BROM 0.5 MG/2.5ML INH SOL NEB SCH ×5 (00:03→23:44)
[2018-12-14] MEDS: ALBUTEROL SULF 2.5 MG/0.5ML(0.5%) NEB SOLN NEB SCH ×5 (00:03→23:44)
--- NOTE | 2018-12-14 00:15 | NUR ---
PT. RECENTLY TURNED TO LEFT SIDE; PT. NOW DESATING TO 89-91%; PLACED PT. SUPINE, SUCTIONED THROUGH ETT/OROPHARYNX; REPLACED O2 SAT PROBE, AND PT. CONT. WITH LOW SATS; INCREASED FIO2 TO 40%.
[2018-12-14 04:13] LABS: Basophils # (auto) 0.1 uL; Basophils % (auto) 1.9 % (0.0-2.0); Eosinophils # (auto) 0.4 uL; Hemoglobin 15.3 g/dL (13.5-17.5); Lymphocytes # (auto) 0.6 uL; Lymphocytes % (auto) 11.1 % (10.0-50.0); Mean Corpuscular Hemoglobin 32.6 pg (28.0-32.0); Mean Corpuscular Hgb Conc. 33.2 g/dL (32.0-36.0); Mean Corpuscular Volume 98.2 fL (80.0-100.0); Monocytes # (auto) 0.7 uL; Monocytes % (auto) 13.2 % (0.0-12.0); Neutrophils # (auto) 3.5 uL; Neutrophils % (auto) 66.8 % (37.0-80.0); Platelet Count (auto) 162 10^3/uL (140-450); Red Blood Cells 4.68 10^6/uL (4.5-5.90); Red Cell Distribution Width 18.5 % (11.8-14.3); White Blood Cell 5.2 10^3/uL (4.4-10.8)
[2018-12-14 04:29] LABS: Albumin 2.9 g/dL (3.4-5.0); BUN/Creatinine Ratio 21.9; Calcium 8.3 mg/dL (8.5-10.1); Potassium 3.6 mmol/L (3.5-5.1)
[2018-12-14 04:32] LABS: Bilirubin, Total 0.7 mg/dL (0.2-1.0); Total Protein 6.8 g/dL (6.4-8.2)
[2018-12-14] MEDS: PIPERACILLIN-TAZOB 3.375GM 100 ML IV SCH ×4 (06:00→17:41)
[2018-12-14] MEDS: InsuLIN REG 1unit/0.01ml Soln (100units/ml) SC SCH ×4 (07:00→22:00)
[2018-12-14] MEDS: ACCU-CHEK COMFORT CURVE STRIP VI SCH ×4 (07:00→22:08)
--- NOTE | 2018-12-14 08:10 | NUR ---
DR. TY HERE TO SEE PATIENT. SEE EMR FOR ANY NEW ORDERS AND MD NOTES.
[2018-12-14] MEDS: PANTOPRAZOLE 40 MG/10 ML VIAL INJ IV SCH (09:52)
[2018-12-14] MEDS: DOCUSATE SOD 100 MG CAP PO SCH ×2 (09:52→21:55)
[2018-12-14] MEDS: NICOTINE 21MG/24 HR TOPICAL PATCH TD SCH (09:53)
--- NOTE | 2018-12-14 11:50 | NUR ---
Nutrition Follow-up Notes Wt.: 117.1 kg as of yesterday. Noted ?21 kg weight loss in last 2 days likely d/t ? fluid loss aeb negative I & Os for past few days. Pt's room curtain's closed, RN at bedside when rounded this morning. Pt remains intubated, sedated with with Propofol @ 20.895 ml/hr providing 552 kcal from Fat. Pt's currently NPO, for possible procedure today. Noted pt's with previous order ror EN support of Jevity 1.2 Miguel @ 60 m/hr providing 1728 kcal,80 gms pro and 1162 ml free water. Est. Needs: 1950 kcal to 2500 kcal (14-18 kcal/kgBW), 81 gms to 113 gms pro (1.0-1.4 gms/kgIBW: 81 kg for wound healing). Will continue to monitor pertinent labs and reassess nutrient need prn Labs: BUN 82 H, Ca 8.3 L, AST 65 H, Alb 2.9 L; Uric acid 9.7 H, HbA1c 5.8 wnl Skin: Gadiel scale 13, mod risk, pt's L, R lower extremities 2 open wounds per loan documentation specialist. Pls refer to gang plank workman's notes (12/09/18) for further details re: tx plans. GI: Pt's no bowel activity since 12/09/18 per loan documentation specialist. PES: Altered nutrition related lab values r/t acute/chronic medical condition aeb hyperglycemia, hypercapnia, hyperkalemia, elev. Cr, Phos, Uric acid Increased nutrient needs r/t current/chronic medical condition aeb intubated, sedated, wound healing, NPO. Obesity r/t food intake more than body requirement aeb 172% IBW, BMI 41.7 kg/m2 and increased body adiposity Will continue to monitor NPO status, skin status, pertinent labs and weight trend. F/u in 2 to 3 days. Rec.: 1.) If still NPO, consider to resume EN support with formula choice of Jevity 1.2 Miguel @ 60 ml/hr goal rate as tolerated while on current rate of Propofol if medically appropriate. 2.) Consider daily MVI with minerals and Asc acid 500 mgs BID prn. 3.) Advance gradually to oral diet when medically appropriate. 4.) Refer to RD for further nutrition education and weight monitoring upon discharged. 5.) Continue current plan of care.
[2018-12-14] MEDS ORDERED: EPINEPHrine HCL 1 MG/10 ML SYRG ONE (12:39)
[2018-12-14] MEDS: VANCOMYCIN 1,500 MG in D5W 5% 250 ML IV SCH (12:43)
--- NOTE | 2018-12-14 13:55 | NUR ---
EGD DONE AT BEDSIDE. SEE REPORT.
[2018-12-14] MEDS: MIDAZOLAM DRIP 50 mg/50mL 50 ML IV SCH (16:11)
[2018-12-14] MEDS: PROPOFOL 100 ML IV SCH (16:11)
--- NOTE | 2018-12-14 16:53 | NUR ---
Respiratory note: CHANGED VENT CIRCUIT TO HEATED CIRCUIT V6. PLUGGED VENT INTO RED OUTLET. ALL ALARMS ARE AUDIBLE AND FUNCTIONING. CONNECTED TO PROPER O2 SOURCE. AMBU BAG/MASK AT BED SIDE CONNECTED TO O2 SOURCE.
[2018-12-14] MEDS: OMEPRAZOLE 20MG/10ML ORAL SUSP NG SCH (21:55)
--- NOTE | 2018-12-14 22:55 | NUR ---
REPORT GIVEN TO BABAK MORE.
--- NOTE | 2018-12-14 23:00 | NUR ---
CARE ASSUMED, REPORT FROM CHILO RN. PT. SEDATED AND INTUBATED ON VERSED AND PROPOFOL 13 MG/HR AND 25 MCG/KG/MIN. PUPILS 5+ BILATERALLY. VENT - AC-16, TV - 600, PEEP +5, 30% FIO2. SATS 96%. LUNGS DIMINISHED THROUGHOUT. ABDOMEN - LARGE, HYPOACTIVE BOWEL SOUNDS. CALL WITH CLEAR, CORNELIA URINE. SKIN - BILATERAL LOWER EXTREMITIES WITH SMALL SORES WHICH ARE DRESSED AT THIS TIME. WILL CHANGE IV- RU MID LINE AND #20 LH
[2018-12-15] VITALS (104 sets, daily range): BP systolic 108–185; BP diastolic 59–105
[2018-12-15] MEDS: PIPERACILLIN-TAZOB 3.375GM 100 ML IV SCH ×5 (00:19→23:24)
[2018-12-15] MEDS: PROPOFOL 100 ML IV SCH ×5 (00:45→10:52)
--- NOTE | 2018-12-15 01:35 | NUR ---
BILATERAL DRESSING TO L.E CLEAN AND INTACT. DRESSING CHANGES Q 3 DAYS PER WOUND NURSE. LAST CHANGED 12/13/18
[2018-12-15] MEDS: MIDAZOLAM DRIP 50 mg/50mL 50 ML IV SCH ×3 (02:38→11:50)
[2018-12-15 03:44] LABS: Basophils # (auto) 0.1 uL; Basophils % (auto) 1.2 % (0.0-2.0); Eosinophils # (auto) 0.4 uL; Eosinophils % (auto) 5.3 % (0.0-7.0); Hematocrit 45.2 % (41.0-53.0); Hemoglobin 15.2 g/dL (13.5-17.5); Lymphocytes # (auto) 0.5 uL; Lymphocytes % (auto) 6.2 % (10.0-50.0); Mean Corpuscular Hemoglobin 32.9 pg (28.0-32.0); Mean Corpuscular Hgb Conc. 33.7 g/dL (32.0-36.0); Mean Corpuscular Volume 97.6 fL (80.0-100.0); Monocytes # (auto) 0.9 uL; Monocytes % (auto) 11.8 % (0.0-12.0); Neutrophils # (auto) 5.8 uL; Neutrophils % (auto) 75.5 % (37.0-80.0); Nucleated Red Blood Cells % 1.4 %; Red Blood Cells 4.64 10^6/uL (4.5-5.90); Red Cell Distribution Width 18.1 % (11.8-14.3); White Blood Cell 7.7 10^3/uL (4.4-10.8)
[2018-12-15 03:49] LABS: Platelet Count (auto) 168 10^3/uL (140-450)
[2018-12-15 03:56] LABS: Albumin 3.1 g/dL (3.4-5.0); BUN/Creatinine Ratio 22.2; Calcium 8.3 mg/dL (8.5-10.1); Potassium 3.4 mmol/L (3.5-5.1)
[2018-12-15 03:59] LABS: Bilirubin, Total 0.6 mg/dL (0.2-1.0); Total Protein 7.1 g/dL (6.4-8.2)
[2018-12-15] MEDS: ACCU-CHEK COMFORT CURVE STRIP VI SCH ×4 (06:02→21:54)
[2018-12-15] MEDS: InsuLIN REG 1unit/0.01ml Soln (100units/ml) SC SCH ×4 (06:02→21:54)
[2018-12-15] MEDS: ALBUTEROL SULF 2.5 MG/0.5ML(0.5%) NEB SOLN NEB SCH ×3 (06:18→18:44)
[2018-12-15] MEDS: IPRATROPIUM BROM 0.5 MG/2.5ML INH SOL NEB SCH ×3 (06:18→18:44)
--- NOTE | 2018-12-15 07:30 | NUR ---
ASSESS- PT. LYING IN BED ON VENT SIZE #8.0 ET, 26 AT THE LIP, AC-16, TV-600, PEEP-5, FIO2-30%. LUNGS COARSE BARBARA. INSPIRATORY AND EXPIRATORY. PT. HAS HYPOACTIVE GAG/COUGH REFLEX. RESPONDS TO PAINFUL/TACTILE STIMULI. NO MOVEMENT OF EXTREMITIES SEEN. VERSED GTT. AT 13 MG./HR. AND PROPOFL GTT. AT 30 MCG. DOES NOT FOLLOW ANY COMMANDS. EYES CLOSED, DO NOT OPEN TO ANY STIMULI. ABD. SOFT, LG. BOWEL SOUNDS HYPOACTIVE ALL FOUR QUADRANTS. F/C TO GRAVITY WITH CLEAR YELLOW URINE. RADIAL PULSES STRONG, PALPABLE BARBARA. PEDAL PULSES STRONG, PALPABLE BARBARA. 1 PLUS EDEMA ARMS BARBARA. 1 PLUS EDEMA LE BARBARA. BARBARA. LE WITH CELLULITIS WRAPPED IN KERLIX, D/I. DAMEON WITH MID-LINE INTACT.
--- NOTE | 2018-12-15 09:05 | NUR ---
DR. Marleen TY Provider/Hospitalist at bedside. SPOKE WITH PT'S. AND GAVE HER UPDATE.
[2018-12-15] MEDS: NICOTINE 21MG/24 HR TOPICAL PATCH TD SCH (09:24)
[2018-12-15] MEDS: DOCUSATE SOD 100 MG CAP PO SCH ×3 (09:25→21:58)
[2018-12-15] MEDS: OMEPRAZOLE 20MG/10ML ORAL SUSP NG SCH ×3 (09:25→21:58)
--- NOTE | 2018-12-15 10:00 | NUR ---
Family updated on pt status Family of SIDNEY LUCIANO updated on patient's status and condition. All questions and concerns addressed. verbalized understanding. VISITING AT THE BS.
[2018-12-15] MEDS: VANCOMYCIN 1,500 MG in D5W 5% 250 ML IV SCH (10:51)
--- NOTE | 2018-12-15 14:00 | NUR ---
DR. Rhea PARKS CALLED AND WOULD LIKE TO DO CPAP TRIAL TODAY, ORDER RECEIVED. STARTING TO TITRATE VERSED GTT. AND PROPOFOL GTT. DOWN. PLACED BARBARA. HAND MITTENS ON PT. TO PREVENT PULLING OF TUBES. AT THE BS.
--- NOTE | 2018-12-15 14:20 | NUR ---
PT HAS CPAP ORDERS WHEN PT FULLY WAKES UP. PT OFF SEDATION. WILL CONTINUE TO MONITOR PT.
--- NOTE | 2018-12-15 15:24 | NUR ---
PROPOFOL GTT. AND VERSED GTT. WEANED OFF. PT. OPENING EYES SPONTANEOUSLY, NO TRACKING. DOES NOT FOLLOW ANY COMMANDS YET.
--- NOTE | 2018-12-15 16:45 | NUR ---
PT. REMAINS WITH EYES OPEN, NO TRACKING. DOES NOT FOLLOW COMMANDS AT THIS TIME. SEDATION REMAINS OFF. VISITING AT THE BS.
--- NOTE | 2018-12-15 18:30 | NUR ---
VISITING AT THE BS. PT. IS OFF ALL SEDATION. EYES OPEN, NO TRACKING. SAID WHEN SHE ASKS PT. A QUESTION HE SHAKES HIS HEAD APPROPRIATELY. NO MOVEMENT OF EXTREMITIES SEEN.
--- NOTE | 2018-12-15 19:22 | NUR ---
PT. REMAINS INTUBATED, ALL SEDATION OFF AT THIS TIME. AC/16, TV-600, PEEP +5, FIO2 30%, SATS 94%, ETT 8 FR. 26CM AT LIP LINE. LUNGS CLEAR UPPER LOBES ANTERIORLY, COARSE CRACKLES AT BASES. CARDIAC - MONITOR SHOWS SINUS TACH 115 WITH FREQ. PVC'S, SBP 157/91 PT. OPEN EYES SPONTANEOUSLY BUT IS NOT RESPONDING WHEN SPOKEN TO. MOVEMENT OF HEAD AND FEET SPONTANEOUSLY. ABDOMEN LARGE WITH (+) B.S, NO BM AT THIS TIME. CALL CATH WITH CLEAR YELLOW URINE LYING SUPINE ALL EXTREMITIES ELEVATED. ETT SUCTION WITH MODERATE AMT. OF THIN WHITE SECRETIONS AND SMALL BROWN PLUG. ORAL SUCTION AND ORAL CARE PROVIDED.
--- NOTE | 2018-12-15 19:49 | NUR ---
DR. GONZALES AT BEDSIDE. DISCUSSED SEDATION, TACHYCARDIA STATUS POST OFF SEDATION. ORDERS FOR VERSED PRN RECEIVED.
[2018-12-15] MEDS: MORPHINE SULF INJ 2 MG/ML SYRINGE 1ML IV PRN (20:00)
--- NOTE | 2018-12-15 21:59 | NUR ---
PO MEDS HELD NO NGT AT THIS TIME, PT. TO BE EXTUBATED 12/16/18
--- NOTE | 2018-12-15 22:35 | NUR ---
RESTLESS, KICKING LEGS, HR 130, SBP 163/103, WILL PROVIDE VERSED 2 MG IV
[2018-12-15] MEDS: MIDAZOLAM HCL 1MG/1ML-2 ML VIAL IV PRN (22:40)
[2018-12-16] VITALS (55 sets, daily range): BP systolic 119–183; BP diastolic 66–114
[2018-12-16] MEDS: IPRATROPIUM BROM 0.5 MG/2.5ML INH SOL NEB SCH ×4 (00:28→18:41)
[2018-12-16] MEDS: MORPHINE SULF INJ 2 MG/ML SYRINGE 1ML IV PRN (01:07)
[2018-12-16 03:46] LABS: Basophils # (auto) 0.1 uL; Basophils % (auto) 0.9 % (0.0-2.0); Eosinophils # (auto) 0.4 uL; Hematocrit 45.7 % (41.0-53.0); Hemoglobin 15.3 g/dL (13.5-17.5); Lymphocytes # (auto) 0.6 uL; Lymphocytes % (auto) 7.3 % (10.0-50.0); Mean Corpuscular Hemoglobin 32.5 pg (28.0-32.0); Mean Corpuscular Hgb Conc. 33.6 g/dL (32.0-36.0); Monocytes # (auto) 1.2 uL; Monocytes % (auto) 14.9 % (0.0-12.0); Neutrophils # (auto) 5.6 uL; Neutrophils % (auto) 71.9 % (37.0-80.0); Nucleated Red Blood Cells % 0.2 %; Platelet Count (auto) 186 10^3/uL (140-450); Red Blood Cells 4.71 10^6/uL (4.5-5.90); Red Cell Distribution Width 17.9 % (11.8-14.3); White Blood Cell 7.7 10^3/uL (4.4-10.8)
[2018-12-16 04:03] LABS: Albumin 3.3 g/dL (3.4-5.0); Calcium 8.8 mg/dL (8.5-10.1); Potassium 3.1 mmol/L (3.5-5.1)
[2018-12-16 04:06] LABS: Total Protein 7.6 g/dL (6.4-8.2)
--- NOTE | 2018-12-16 05:28 | NUR ---
AWAKE, DROWSY, FOLLOWS COMMANDS, MOUTHS WORDS AND STATES WANT TO TALK TO , INFORMED SHE WILL BE HERE THIS A.M AND NODS. CALM, HR 90, RR 16, SATS 95%
[2018-12-16] MEDS: PIPERACILLIN-TAZOB 3.375GM 100 ML IV SCH ×3 (05:34→18:14)
[2018-12-16] MEDS: ALBUTEROL SULF 2.5 MG/0.5ML(0.5%) NEB SOLN NEB SCH ×4 (06:00→18:41)
[2018-12-16] MEDS: ACCU-CHEK COMFORT CURVE STRIP VI SCH ×4 (06:32→22:00)
[2018-12-16] MEDS: InsuLIN REG 1unit/0.01ml Soln (100units/ml) SC SCH ×4 (06:32→22:00)
--- NOTE | 2018-12-16 07:27 | NUR ---
REPORT GIVEN TO KAREN HILLIARD
--- NOTE | 2018-12-16 08:00 | NUR ---
CPAP TRIAL ATTEMPTED PER RT -AFTER 30 MIN, PATIENT NOTED TO HAVE 20 SEC APNEIC PERIODS IN ADDITION TO LOW TIDAL VOLUMES BEING PULLED ON VENTILATOR - PLACED BACK ON AC MODE OF VENTILATOR. PATIENT AWAKE ET FOLLOWING COMMANDS WITH OCCASIONAL PERIODS OF ANXIETY NOTED RESULTANT IN ELEVATED SBP 150-160. RELAXATION ET DEEP BREATHING ENCOURAGE WHILE PATIENT ON CPAP TRIAL. PATIENT'S AT BEDSIDE.
--- NOTE | 2018-12-16 09:15 | NUR ---
DR TY VISITS ET EXAMINES PATIENT - ORDERS RECEIVED. PATIENT'S AT BEDSIDE - UPDATED ON PATIENT'S POC - VERBALIZED UNDERSTANDING.
[2018-12-16] MEDS: OMEPRAZOLE 20MG/10ML ORAL SUSP NG SCH ×2 (09:49→22:00)
[2018-12-16] MEDS: DOCUSATE SOD 100 MG CAP PO SCH ×2 (09:49→22:00)
[2018-12-16] MEDS: NICOTINE 21MG/24 HR TOPICAL PATCH TD SCH (09:53)
[2018-12-16] MEDS ORDERED: POTASSIUM CHL 20MEQ/100ML 100 ML IV ONE (10:00)
--- NOTE | 2018-12-16 11:21 | NUR ---
Nutrition Follow-up Notes Wt.: 113.9 kg today. Noted 3.2 kg weight loss in last 2 days likely d/t ? fluid loss aeb negative I & Os for past few days. Pt's intubated, non-sedated, currently NPO with EN support temporarily held this morning for CPAP trial today, per nursing. Pt's with previous for Jevity 1.2 Miguel @ 60 m/hr providing 1728 kcal,80 gms pro and 1162 ml free water. Est. Needs: 1950 kcal to 2500 kcal (14-18 kcal/kgBW), 81 gms to 113 gms pro (1.0-1.4 gms/kgIBW: 81 kg for wound healing). Will continue to monitor pertinent labs and reassess nutrient need prn Labs: Gluc 115 H, BUN 25 H, K 3.1 L, AST 77 H, ALT 94 H, Alb 3.3 L Skin: Gadiel scale 11, high risk, pt's L, R lower extremities 2 open spots/cellulitis per associate professor of engineering. Pls refer to consultant intern's notes (12/09/18) for further details re: tx plans. GI: Pt's no bowel activity since 12/09/18 per associate professor of engineering. PES: Altered nutrition related lab values r/t acute/chronic medical condition aeb hyperglycemia, hypercapnia, hyperkalemia, elev. Cr, Phos, Uric acid Increased nutrient needs r/t current/chronic medical condition aeb intubated, sedated, wound healing, NPO. Obesity r/t food intake more than body requirement aeb 172% IBW, BMI 41.7 kg/m2 and increased body adiposity Will continue to monitor NPO status, skin status, pertinent labs and weight trend. F/u in 2 to 3 days. Rec.: 1.) Advance gradually to oral diet when medically appropriate. 2.) If still NPO, consider to resume EN support with formula choice of Jevity 1.2 Miguel @ 70 ml/hr goal rate as tolerated if medically appropriate. 3.) Consider daily MVI with minerals and Asc acid 500 mgs BID prn. 4.) Refer to RD for further nutrition education and weight monitoring upon discharged. 5.) Continue current plan of care.
[2018-12-16] MEDS: VANCOMYCIN 1,500 MG in D5W 5% 250 ML IV SCH (11:24)
[2018-12-16] MEDS: POTASSIUM CHL 20MEQ/100ML 100 ML IV SCH ×2 (15:29→17:13)
[2018-12-16] MEDS: MIDAZOLAM HCL 1MG/1ML-2 ML VIAL IV PRN (17:00)
--- NOTE | 2018-12-16 19:10 | NUR ---
open note report received from day rn. assumed care of male pt intubated not sedated, preparing for repeat cpap trial. pt is alert awake, opens eyes spontaneously. respirations are equal and unlabored, bases slightly diminished. pt connected to icu monitors. pt has iv R upper midline, iv is patent, no ss of redness of swelling, appears asymptomatic. pt has hypoactive bowel sounds, bonilla hanging below bladder, patent draining clear yellow urine to gravity. pt has redness bilaterally to lower extremities. Optifoam and dressing applied to lower extremities, will change dressing according to wound care/ md orders. pt has pillows in place to offload pressure of thelma prominences for pts comfort and safety. bed in lowest position, wheels locked, hob 30*, side rails up x2, pt educated how to use call light, and to use if assistance is needed. pt shook head yes for understanding. call light within reach.no ss of distress noted at this time. will continue to care for and monitor pt.
--- NOTE | 2018-12-16 20:02 | NUR ---
CALLED Shila STRAUSS WITH ABG RESULTS ALONG WITH VC 1011, NIF -20, RSBI 90. GAVE TELEPHONE ORDER TO EXTUBATE PT, AND BIPAP 12/5 PRN FOR MODERATE RESP DISTRESS.
--- NOTE | 2018-12-16 20:50 | NUR ---
at bedside at bedside. all questions and concerns answered at this time. will continue to care for and monitor pt.
--- NOTE | 2018-12-16 21:00 | NUR ---
rt at bedside
--- NOTE | 2018-12-16 21:30 | NUR ---
md hetal valencia pg due to pt elevated bp, awaiting call back
--- NOTE | 2018-12-16 21:50 | NUR ---
CASE FINISHER called back [employer] kimmy called back regarding page for pt's bp. orders received.
--- NOTE | 2018-12-16 22:05 | NUR ---
pt refused meds pt at bedside and refused meds for pt. pt told the medications that were prescribed at this time and pt shook head no. ask pt if the pt wants to take the prescribed meds, pt again shook head no.
[2018-12-17] VITALS (27 sets, daily range): BP systolic 117–158; BP diastolic 47–101
[2018-12-17] MEDS: ALBUTEROL SULF 2.5 MG/0.5ML(0.5%) NEB SOLN NEB SCH ×5 (00:04→23:57)
[2018-12-17] MEDS: IPRATROPIUM BROM 0.5 MG/2.5ML INH SOL NEB SCH ×5 (00:04→23:57)
[2018-12-17] MEDS ORDERED: LABETALOL HCL 5 MG/ML ML 20ML VIAL IV ONE (00:30)
--- NOTE | 2018-12-17 03:00 | NUR ---
hygiene partial bed bath given, partial linen change. tubes and canisters changed. new robe provided. pt tolerated care and turns. will continue to care for and monitor
[2018-12-17 04:31] LABS: Basophils # (auto) 0.1 uL; Eosinophils # (auto) 0.4 uL; Eosinophils % (auto) 5.3 % (0.0-7.0); Hematocrit 45.4 % (41.0-53.0); Hemoglobin 15.3 g/dL (13.5-17.5); Lymphocytes # (auto) 0.6 uL; Lymphocytes % (auto) 8.1 % (10.0-50.0); Mean Corpuscular Hgb Conc. 33.6 g/dL (32.0-36.0); Mean Corpuscular Volume 98.2 fL (80.0-100.0); Monocytes # (auto) 1.2 uL; Monocytes % (auto) 17.3 % (0.0-12.0); Neutrophils # (auto) 4.9 uL; Neutrophils % (auto) 68.3 % (37.0-80.0); Platelet Count (auto) 185 10^3/uL (140-450); Red Blood Cells 4.62 10^6/uL (4.5-5.90); Red Cell Distribution Width 18.3 % (11.8-14.3); White Blood Cell 7.2 10^3/uL (4.4-10.8)
[2018-12-17 04:37] LABS: Albumin 3.3 g/dL (3.4-5.0); Calcium 9.2 mg/dL (8.5-10.1); Potassium 3.8 mmol/L (3.5-5.1)
[2018-12-17 04:41] LABS: BUN/Creatinine Ratio 25.8; Bilirubin, Total 0.8 mg/dL (0.2-1.0); Total Protein 7.6 g/dL (6.4-8.2)
[2018-12-17] MEDS: PROPOFOL 100 ML IV SCH (04:48)
--- NOTE | 2018-12-17 04:55 | NUR ---
pain pt states his legs are in pain 6/10. pt states he does not want anything for the pain. will continue to monitor and reassess pt.
[2018-12-17] MEDS: MIDAZOLAM DRIP 50 mg/50mL 50 ML IV SCH (05:16)
[2018-12-17] MEDS: VANCOMYCIN 1,500 MG in D5W 5% 250 ML IV SCH ×2 (05:29→22:21)
--- NOTE | 2018-12-17 06:03 | NUR ---
Respiratory note: PT REMOVED FROM THE BIPAP AND PLACED ON A 3L NC. NO SOB NOTED. RR 24, HR 90, POX 95%. RN HAS BEEN MADE AWARE. BIPAP REMAINS AT BEDSIDE ON STANDBY.
--- NOTE | 2018-12-17 06:05 | NUR ---
rt at bedside pt off bipap. on 3 L nc per rt will continue to monitor
[2018-12-17] MEDS: ACCU-CHEK COMFORT CURVE STRIP VI SCH (07:00)
[2018-12-17] MEDS: InsuLIN REG 1unit/0.01ml Soln (100units/ml) SC SCH (07:00)
[2018-12-17] MEDS: PIPERACILLIN-TAZOB 3.375GM 100 ML IV SCH ×4 (07:50→17:40)
--- NOTE | 2018-12-17 09:00 | NUR ---
DR TY VISITS ET EXAMINES PATIENT - ORDERS RECEIVED. PATIENT'S AT BEDSIDE -MD INFORMED OF PATIENT CONDITION AND POC- PATIENT ET VERBALIZE UNDERSTANDING.
[2018-12-17] MEDS ORDERED: IOHEXOL 350 MG/ML 100ML IJ ONE (09:27)
[2018-12-17] MEDS ORDERED: MORPHINE SULF INJ 2 MG/ML SYRINGE 1ML IV PRN ×2 (09:30)
--- NOTE | 2018-12-17 09:30 | NUR ---
PATIENT TOOK APPROX 50% OF CLEAR LIQ DIET WITH COUGHING NOTED - WILL CONTINUE TO MONITOR.
--- NOTE | 2018-12-17 10:00 | NUR ---
I.S. GIVEN TO PATIENT ET INSTRUCTED ON USE - PATIENT ET VERBALIZE UNDERSTANDING, RETURN DEMONSTRATION SATISFACTORY - PATIENT ABLE TO GET 500ML.
--- NOTE | 2018-12-17 10:00 | NUR ---
DR STEVENS VISITS - NO ORDERS RECEIVED AT PRESENT. PATIENT TO CT PER STRETCHER ON PORTABLE O2 AND AUDIT CONTROL CLERK ACCOMPANIED PER RN FOR CT ANGIO.
[2018-12-17] MEDS: DOCUSATE SOD 100 MG CAP PO SCH ×2 (10:25→22:00)
[2018-12-17] MEDS: HYDROcodone-ACET 5/325MG TAB PO PRN (10:25)
[2018-12-17] MEDS: NICOTINE 21MG/24 HR TOPICAL PATCH TD SCH (10:26)
[2018-12-17] MEDS: OMEPRAZOLE 20MG/10ML ORAL SUSP NG SCH (10:26)
--- NOTE | 2018-12-17 11:30 | NUR ---
DR TY NOTIFIED OF CT ANGIO RESULTS - NO NEW ORDERS RECEIVED.
--- NOTE | 2018-12-17 11:52 | NUR ---
I placed a call to Arlene [facility] Slitter Scorer Cut Off Operator Marie [phone] and left message giving her a verbal update on the status of this patient.
--- NOTE | 2018-12-17 12:15 | NUR ---
WOUND CARE NOTE: Wound care in to see patient for reevaluation of wounds and skin integrity monitoring. Patient continue resting in ICU bed in Rm. 109. He's awake, alert and oriented. He' sin no stated pain at this time. He needs assistance in turning and repositioning and his current Gadiel score is 13. Patient's BLE edema and erythema is much improved. Blisters now dry and scabbed with tiny open wound to R medial lower leg when scabbed accidentally peeled off when patient moved his Rt leg while wound care is spraying wound cleanser to saturate dressing for easy removal. Cleansed wounds, photographed and changed the dressing as ordered. Patient turned to his side to visualize sacral and back, no wound noted, no pressure injury noted. Patient tolerated well, repositioned for comfort. RECOMMENDATION: Continuation of all wound care orders prescribed by MD, continue with skin/wound plan of care, continue monitoring by wound care while patient is hospitalized. Addendum: 12/17/18 at 2 by Allegra Douglas RN Amended: Links added.
--- NOTE | 2018-12-17 12:30 | NUR ---
DR TY NOTIFIED OF COUGHING WITH AM DIET TAKEN - ORDER RECEIVED, SPEECH THERAPIST NOTIFIED.
--- NOTE | 2018-12-17 12:57 | NUR ---
SWALLOW EVALUATED WITH FAMILY PRESENT. PATIENT HAS OWN TEETH UPPER AND LOWER. ABLE TO TOLERATE MECHANICAL SOFT DIET TEXTURE WITH NO OVERT SIGNS OR SYMPTOMS OF ASPIRATION. PATIENT COUGHED ON THIN LIQUIDS TRIAL. NO DIFFICULTY WITH NECTAR THICKENED LIQUIDS. NURSING NOTIFIED.
--- NOTE | 2018-12-17 13:18 | NUR ---
RECEIVED REPORT FROM BABAK JONES-ICU
--- NOTE | 2018-12-17 13:18 | NUR ---
REPORT CALLED TO BOB HILLIARD.
--- NOTE | 2018-12-17 13:35 | NUR ---
PATIENT TRANSPORTED TO ROOM 247B NV BED ON PORTABLE O2 AND TELE MONITOR #11. CONDITION APPEARS STABLE FOR TRANSFER TO TELE BED.
--- NOTE | 2018-12-17 13:40 | NUR ---
Received pt from ICU via bed, pt is awake and alert, pt on oxygen via nasal cannula at 3l/min, with midline on right upper arm patent and flushing, with bonilla catheter draining brown color urine with sediments, with wound dressing on both leg clean dry and intact, no signs of distress at this time
--- NOTE | 2018-12-17 14:35 | NUR ---
FOAM BOOTS APPLIED TO BOTH LEG.
--- NOTE | 2018-12-17 15:11 | NUR ---
PT EDUCATED ON HOW TO USE THE INCENTIVE SPIROMETER AND ITS BENEFITS , PT ABLE TO DEMONSTRATE THE CORRECT USE.
--- NOTE | 2018-12-17 16:15 | NUR ---
Bowel movement Pt assisted to the commode with moderate assist, pt had BM soft, green in moderate amount.
--- NOTE | 2018-12-17 19:15 | NUR ---
Opening shift note: Assumed care from day nurse. Patient is alert and oriented x 4. Patient denies pain. no s/s of distress or sob on 3 l via nc. Hopper to gravity draining dark sarai urine. Instructed patient on poc and to call for assistance as needed. Patient and family verbalized understanding. Bed in lowest position and call light is within reach.
[2018-12-17] MEDS: OMEPRAZOLE 20MG/10ML ORAL SUSP PO SCH (22:14)
--- NOTE | 2018-12-18 00:10 | NUR ---
RECEIVED SBAR/REPORT FROM BABAK ORTEGA WILL ASSUME CARE OF PATIENT PATIENT RESTING COMFORTABLY IN BED AT THIS TIME. NO S/S OF DISTRESS NOTED. CALL LIGHT WITHIN REACH. BEDSIDE INTRODUCTION WITH HANDOFF FROM JORDAN.
--- NOTE | 2018-12-18 00:10 | NUR ---
Endorsed care Endorsed care to Hien. No s/s of sob or distress. Patient is stable at this time.
[2018-12-18] MEDS: PIPERACILLIN-TAZOB 3.375GM 100 ML IV SCH ×4 (00:22→18:37)
[2018-12-18 04:30] VITALS: BP 147/83
[2018-12-18] MEDS: IPRATROPIUM BROM 0.5 MG/2.5ML INH SOL NEB SCH ×4 (06:02→23:51)
[2018-12-18] MEDS: ALBUTEROL SULF 2.5 MG/0.5ML(0.5%) NEB SOLN NEB SCH ×4 (06:02→23:51)
--- NOTE | 2018-12-18 06:59 | NUR ---
CLOSING NOTE PATIENT IS SLEEPING, NO S/S OF DISTRESS NOTED. FALL PRECAUTIONS IN PLACE, CALL LIGHT WITHIN REACH. WILL ENDORSE CARE TO DAY SHIFT RN
[2018-12-18 09:00] VITALS: BP 119/78
[2018-12-18] MEDS: DOCUSATE SOD 100 MG CAP PO SCH ×2 (10:01→19:57)
[2018-12-18] MEDS: NICOTINE 21MG/24 HR TOPICAL PATCH TD SCH (10:01)
[2018-12-18] MEDS: chlordiazePOXIDE HCL 5 MG CAP PO PRN ×3 (10:08→19:59)
[2018-12-18] MEDS: OMEPRAZOLE 20MG/10ML ORAL SUSP PO SCH ×2 (10:09→20:52)
[2018-12-18] MEDS: HYDROcodone-ACET 5/325MG TAB PO PRN ×2 (10:33→17:40)
--- NOTE | 2018-12-18 12:03 | NUR ---
Nutrition Follow-up Notes Wt.: 112.0 kg Pt's successfully extubated sleeping with no distress noted per nursing when rounded this am. pt is now advanced to [facility] soft diet with inadequate PO of < 50% x 4 per RN doc Est. Needs: 1950 kcal to 2500 kcal (14-18 kcal/kgBW), 81 gms to 113 gms pro (1.0-1.4 gms/kgIBW: 81 kg for wound healing). Will continue to monitor pertinent labs and reassess nutrient need prn Labs: GLU 113 H, ALB 3.3 L, BUN 25 H Skin: Gadiel scale 16, modrisk, pt's L, R lower extremities 2 open spots/cellulitis per clergy member. Pls refer to front desk attendant's notes for further details re: tx plans. GI: Pt had 1 BM yesterday per clergy member. PES: Altered nutrition related lab values r/t acute/chronic medical condition aeb hyperglycemia, hypercapnia, hyperkalemia, elev. Cr, Phos, Uric acid Partially resolved: Increased nutrient needs r/t current/chronic medical condition aeb intubated, sedated, wound healing, NPO. Obesity r/t food intake more than body requirement aeb 172% IBW, BMI 41.7 kg/m2 and increased body adiposity Will continue to monitor PO intake, skin status, pertinent labs and weight trend. F/u in 3-5 days. Rec.: 1.) consider ensure Enlive 1 carton bid if PO continues to be low. 2) continue assistance with meals. 3) Consider daily MVI with minerals and Asc acid 500 mgs BID prn. 4.) Refer to RD for further nutrition education and weight monitoring upon discharged. 5.) Continue current plan of care.
[2018-12-18 13:00] VITALS: BP 127/80
[2018-12-18] MEDS: VANCOMYCIN 1,500 MG in D5W 5% 250 ML IV SCH (16:47)
[2018-12-18 17:00] VITALS: BP 150/98
[2018-12-18 20:38] VITALS: BP 150/98
--- NOTE | 2018-12-18 20:43 | NUR ---
RESPIRATORY PAGED PT REQUESTING TO BE PLACED ON BIPAP
[2018-12-18 22:00] VITALS: BP 134/83
[2018-12-19] MEDS: PIPERACILLIN-TAZOB 3.375GM 100 ML IV SCH ×2 (00:01→05:52)
[2018-12-19 04:30] VITALS: BP 138/86
--- NOTE | 2018-12-19 04:40 | NUR ---
PATIENT ABLE TO TURN TO RIGHT SIDE WITH MINIMAL ASSIST. BACKSIDE FREE OF REDNESS/WOUNDS. SKIN CARE PROVIDED PER PATIENT REQUEST. HOB REMAINS UPRIGHT, NO S/S OF DISTRESS NOTED. BED ALARM ON, CALL LIGHT IN REACH.
[2018-12-19] MEDS: ALBUTEROL SULF 2.5 MG/0.5ML(0.5%) NEB SOLN NEB SCH ×3 (06:44→19:26)
[2018-12-19] MEDS: IPRATROPIUM BROM 0.5 MG/2.5ML INH SOL NEB SCH ×3 (06:44→19:26)
--- NOTE | 2018-12-19 06:46 | NUR ---
Respiratory note: PT IS NOT WEARING BIPAP AT THE MOMENT. PT IS ON 2L/M NC AND RECEIVED MN TX.
[2018-12-19 09:00] VITALS: BP 124/63
[2018-12-19] MEDS: NICOTINE 21MG/24 HR TOPICAL PATCH TD SCH (09:32)
[2018-12-19] MEDS: chlordiazePOXIDE HCL 5 MG CAP PO PRN ×2 (09:32→14:35)
[2018-12-19] MEDS: OMEPRAZOLE 20MG/10ML ORAL SUSP PO SCH ×2 (09:33→22:13)
[2018-12-19] MEDS: DOCUSATE SOD 100 MG CAP PO SCH ×2 (09:33→22:00)
[2018-12-19] MEDS ORDERED: LEVOFLOXACIN 250 MG TAB PO ONE (10:30)
[2018-12-19 12:59] VITALS: BP 135/81
[2018-12-19] MEDS: HYDROcodone-ACET 5/325MG TAB PO PRN (14:36)
[2018-12-19 17:00] VITALS: BP 133/88
--- NOTE | 2018-12-19 19:35 | NUR ---
RECEIVED PATIENT LYING IN BED, AWAKE, ALERT, ORIENTED X4. NO S/S OF RESPIRATORY DISTRESS, DENIES SOB AND CHEST PAIN. ORIENTED ON PLAN OF CARE. BED IS LOCKED AND IN LOWEST LEVEL, SIDE RAILS UP X2, CALL LIGHT WITHIN REACH. WILL CONTINUE TO MONITOR
[2018-12-19 20:30] VITALS: BP 133/88
[2018-12-19 22:23] VITALS: BP 153/69
[2018-12-20 04:54] VITALS: BP 139/89
[2018-12-20] MEDS: IPRATROPIUM BROM 0.5 MG/2.5ML INH SOL NEB SCH ×4 (05:37→18:40)
[2018-12-20] MEDS: ALBUTEROL SULF 2.5 MG/0.5ML(0.5%) NEB SOLN NEB SCH ×4 (05:37→18:40)
--- NOTE | 2018-12-20 06:00 | NUR ---
WOUND CARE: BILATERAL LOWER LEG STASIS ULCER CLEANSED WOUNDS WITH WOUND CLEANSER, APPLIED WITH THERAHONEY GEL, COVERED WITH OPTIFOAM AND WRAPPED WITH KERLIX
--- NOTE | 2018-12-20 07:14 | NUR ---
CARE ENDORSED TO AM SHIFT RN
[2018-12-20 07:16] LABS: Basophils # (auto) 0.1 uL; Basophils % (auto) 1.3 % (0.0-2.0); Eosinophils # (auto) 0.3 uL; Eosinophils % (auto) 4.3 % (0.0-7.0); Hematocrit 45.3 % (41.0-53.0); Hemoglobin 14.8 g/dL (13.5-17.5); Lymphocytes # (auto) 0.7 uL; Lymphocytes % (auto) 9.7 % (10.0-50.0); Mean Corpuscular Hemoglobin 32.5 pg (28.0-32.0); Mean Corpuscular Hgb Conc. 32.6 g/dL (32.0-36.0); Mean Corpuscular Volume 99.6 fL (80.0-100.0); Monocytes # (auto) 0.9 uL; Monocytes % (auto) 12.2 % (0.0-12.0); Neutrophils # (auto) 5.1 uL; Neutrophils % (auto) 72.5 % (37.0-80.0); Nucleated Red Blood Cells % 0.1 %; Platelet Count (auto) 191 10^3/uL (140-450); Red Blood Cells 4.54 10^6/uL (4.5-5.90); Red Cell Distribution Width 18.4 % (11.8-14.3); White Blood Cell 7.1 10^3/uL (4.4-10.8)
[2018-12-20 07:22] LABS: Albumin 3.1 g/dL (3.4-5.0); Calcium 9.6 mg/dL (8.5-10.1); Potassium 3.7 mmol/L (3.5-5.1)
[2018-12-20 07:26] LABS: BUN/Creatinine Ratio 16.7; Bilirubin, Total 0.6 mg/dL (0.2-1.0); Total Protein 7.7 g/dL (6.4-8.2)
--- NOTE | 2018-12-20 07:45 | NUR ---
OPENING SHIFT NOTE PATIENT IN BED WITH EYES CLOSED. CHEST RISE AND FALL VISUALIZED. SHOWING NO S.S OF SOB OR ANY DISTRESS AT THIS TIME. BED IS IN LOWEST LOCKED POSITION CALL LIGHT WITH IN REACH. WILL CONTINUE TO MONITOR
[2018-12-20 09:40] VITALS: BP 141/79
[2018-12-20] MEDS: LEVOFLOXACIN 250 MG TAB PO SCH (09:53)
[2018-12-20] MEDS: DOCUSATE SOD 100 MG CAP PO SCH ×2 (09:54→21:30)
[2018-12-20] MEDS: OMEPRAZOLE 20MG/10ML ORAL SUSP PO SCH ×2 (09:55→21:30)
[2018-12-20] MEDS: NICOTINE 21MG/24 HR TOPICAL PATCH TD SCH (09:56)
--- NOTE | 2018-12-20 10:15 | NUR ---
I called patient's medical group [facility] [phone] and left message requesting list of participating home health providers and also requesting authorization for home health.
[2018-12-20 13:21] VITALS: BP 117/72
--- NOTE | 2018-12-20 15:00 | NUR ---
I called [email or web address] and got answering machine to leave message. I asked for them to call us back in order to know where to send request for HH/DME
[2018-12-20 17:04] VITALS: BP 118/59
--- NOTE | 2018-12-20 18:55 | NUR ---
END OF SHIFT NOTE PATIENT AWAKE IN BED WITH AT BEDSIDE. PATIENT DENIES PAIN, SOB OR ANY DISTRESS AT THIS TIME. BED IS IN LOWEST LOCKED POSITION, CALL LIGHT IS WITHIN REACH. WILL ENDORSE CARE TO NOC RN
[2018-12-20] MEDS: chlordiazePOXIDE HCL 5 MG CAP PO PRN (21:29)
[2018-12-20 22:00] VITALS: BP 129/78
[2018-12-21] MEDS: ALBUTEROL SULF 2.5 MG/0.5ML(0.5%) NEB SOLN NEB SCH ×4 (00:12→17:34)
[2018-12-21] MEDS: IPRATROPIUM BROM 0.5 MG/2.5ML INH SOL NEB SCH ×4 (00:12→17:34)
[2018-12-21] MEDS: chlordiazePOXIDE HCL 5 MG CAP PO PRN ×2 (02:50→22:46)
[2018-12-21 04:00] VITALS: BP_SYST 131; BP_SYST 150; BP_DIAS 66; BP_DIAS 95
[2018-12-21 07:06] LABS: Basophils # (auto) 0.1 uL; Basophils % (auto) 0.9 % (0.0-2.0); Eosinophils # (auto) 0.3 uL; Eosinophils % (auto) 3.4 % (0.0-7.0); Hemoglobin 14.5 g/dL (13.5-17.5); Lymphocytes # (auto) 0.6 uL; Lymphocytes % (auto) 7.5 % (10.0-50.0); Mean Corpuscular Hemoglobin 32.4 pg (28.0-32.0); Mean Corpuscular Hgb Conc. 32.9 g/dL (32.0-36.0); Mean Corpuscular Volume 98.4 fL (80.0-100.0); Monocytes # (auto) 0.7 uL; Monocytes % (auto) 9.2 % (0.0-12.0); Neutrophils # (auto) 6.1 uL; Nucleated Red Blood Cells % 0.1 %; Platelet Count (auto) 184 10^3/uL (140-450); Red Blood Cells 4.47 10^6/uL (4.5-5.90); Red Cell Distribution Width 18.1 % (11.8-14.3); White Blood Cell 7.8 10^3/uL (4.4-10.8)
[2018-12-21 07:23] LABS: Anion Gap 9 (5-15); BUN/Creatinine Ratio 15.2; Blood Urea Nitrogen 15 mg/dL (7-18); Carbon Dioxide 28 mmol/L (21-32); Chloride 105 mmol/L (98-107); GFR African American 98 mL/min; GFR Non-African American 81 mL/min; Glucose 100 mg/dL (74-106); Potassium 3.6 mmol/L (3.5-5.1); Sodium 142 mmol/L (136-145)
--- NOTE | 2018-12-21 07:35 | NUR ---
CARE ENDORSED TO AM SHIFT RN
--- NOTE | 2018-12-21 07:50 | NUR ---
Opening Shift Note Assumed care of patient, awake and alert. Patients at bedside asking to speak with medical social consultant in regards to dichsarge. Phone message left with Verenie. No S/S of distress/SOB or pain. Instructed on POC and to call for assist PRN, will continue to monitor for changes Q1hr and PRN.
[2018-12-21 09:00] VITALS: BP 119/70
--- NOTE | 2018-12-21 09:50 | NUR ---
HYGIENE at bedside assisting patient to morning hygiene. Patient reports voiding BM. Patient able to use bedside commode.
[2018-12-21] MEDS: DOCUSATE SOD 100 MG CAP PO SCH ×2 (10:00→21:31)
[2018-12-21] MEDS: OMEPRAZOLE 20MG/10ML ORAL SUSP PO SCH ×3 (10:00→21:31)
--- NOTE | 2018-12-21 10:01 | NUR ---
Jocelyne Leggett has not called myself or Re other [facility] CM for guidance as to who to use for DME and HH. I have called Marie [phone] LEANDRA for BC and had to leave message for her to call me to see if she can give me guidance
[2018-12-21] MEDS: LEVOFLOXACIN 250 MG TAB PO SCH (10:16)
[2018-12-21] MEDS: NICOTINE 21MG/24 HR TOPICAL PATCH TD SCH (10:17)
--- NOTE | 2018-12-21 11:20 | NUR ---
MD ISABEL foley. Oxygen levels on room air assessed with primary RN and MD at bedside. O2 levels drop to 77%. Patient returned to Oxymizer at 5L. MD explained discharge plans once patient stable. Patients at bedside.
[2018-12-21 13:02] VITALS: BP 127/77
--- NOTE | 2018-12-21 15:49 | NUR ---
SS working on ss order for hh and dme
[2018-12-21 16:37] VITALS: BP 127/77
--- NOTE | 2018-12-21 17:15 | NUR ---
RT PAGED Per pt request RT paged. Patient on 5L N/C requesting breathing treatment. Pt at bedside, call light in reach.
--- NOTE | 2018-12-21 19:15 | NUR ---
RECEIVED PATIENT WALKING INSIDE THE ROOM VIA WALKER ASSISTED BY HIS . NO S/S OF RESPIRATORY DISTRESS, DENIES SOB AND CHEST PAIN, ON O2 AT 5LPM VIA NASAL CANNULA WITH HUMIDIFIER.
[2018-12-21 19:42] VITALS: BP 127/77
--- NOTE | 2018-12-21 20:30 | NUR ---
PATIENT LYING IN BED, AWAKE, ALERT, ORIENTED X4. NO S/S OF RESPIRATORY DISTRESS, DENIES SOB AND CHEST PAIN. BED IS LOCKED AND IN LOWEST LEVEL, SIDE RAILS UP X2, CALL LIGHT WITHIN REACH. WILL CONTINUE TO MONITOR
[2018-12-21 22:12] VITALS: BP 143/86
[2018-12-22] MEDS: IPRATROPIUM BROM 0.5 MG/2.5ML INH SOL NEB SCH ×4 (00:41→18:41)
[2018-12-22] MEDS: ALBUTEROL SULF 2.5 MG/0.5ML(0.5%) NEB SOLN NEB SCH ×4 (00:41→18:40)
[2018-12-22 05:00] VITALS: BP 139/76
[2018-12-22 07:14] LABS: Basophils # (auto) 0.1 uL; Basophils % (auto) 1.1 % (0.0-2.0); Eosinophils # (auto) 0.3 uL; Eosinophils % (auto) 3.2 % (0.0-7.0); Hematocrit 42.8 % (41.0-53.0); Hemoglobin 14.2 g/dL (13.5-17.5); Lymphocytes # (auto) 0.5 uL; Lymphocytes % (auto) 6.2 % (10.0-50.0); Mean Corpuscular Hemoglobin 32.6 pg (28.0-32.0); Mean Corpuscular Hgb Conc. 33.1 g/dL (32.0-36.0); Mean Corpuscular Volume 98.5 fL (80.0-100.0); Monocytes # (auto) 0.8 uL; Monocytes % (auto) 9.6 % (0.0-12.0); Neutrophils # (auto) 6.6 uL; Neutrophils % (auto) 79.9 % (37.0-80.0); Nucleated Red Blood Cells % 0.1 %; Platelet Count (auto) 193 10^3/uL (140-450); Red Blood Cells 4.35 10^6/uL (4.5-5.90); Red Cell Distribution Width 18.2 % (11.8-14.3); White Blood Cell 8.2 10^3/uL (4.4-10.8)
--- NOTE | 2018-12-22 07:18 | NUR ---
CARE ENDORSED TO AM SHIFT RN
[2018-12-22 07:24] LABS: Potassium 3.7 mmol/L (3.5-5.1)
[2018-12-22 07:30] LABS: BUN/Creatinine Ratio 15.2; Calcium 9.3 mg/dL (8.5-10.1)
--- NOTE | 2018-12-22 07:50 | NUR ---
Opening Shift Note Assumed care of patient, awake and alert. Patient refuses to eat breakfast tray, assistance offered. Repositioned patient in bed. Opti-foam in place to sacrum as prevention. Connected to 5L N/C. Hopper catheter secured and hung below patient. No S/S of distress/SOB or pain. Instructed on POC and to call for assist PRN, will continue to monitor for changes Q1hr and PRN.
[2018-12-22 09:01] VITALS: BP 143/78
--- NOTE | 2018-12-22 09:21 | NUR ---
Yesterdays note: I received a call from [phone] and she stated to find a HH agency and she would give auth. I informed her I needed a list of snfs they are contracted with so I know who to send to. I did not get list but Hemalatha stated she did get a list from Marie and ss will be trying to get HH from that list
[2018-12-22] MEDS: DOCUSATE SOD 100 MG CAP PO SCH ×2 (10:00→21:39)
--- NOTE | 2018-12-22 10:26 | NUR ---
BED BATH Complete bed bath being performed by OCTAVE BOARD RACKER and patients .
[2018-12-22] MEDS: OMEPRAZOLE 20MG/10ML ORAL SUSP PO SCH ×2 (10:51→21:45)
[2018-12-22] MEDS: LEVOFLOXACIN 250 MG TAB PO SCH (10:52)
[2018-12-22] MEDS: NICOTINE 21MG/24 HR TOPICAL PATCH TD SCH (10:53)
[2018-12-22 12:55] VITALS: BP 128/76
--- NOTE | 2018-12-22 15:08 | NUR ---
MD ROUNDING/HOME O2 Dr Cornelius rounding on patient. and primary RN at bedside. RT reported ABG results to MD at bedside. Patient qualifies for home O2. Orders given and read back. environmental services worker made aware of new orders.
[2018-12-22 16:53] VITALS: BP 127/70
--- NOTE | 2018-12-22 16:56 | NUR ---
SS has had no success with agencies that is suppose to be contracted with. Pt will have to stay here until Thursday since is closed tomorrow.
--- NOTE | 2018-12-22 19:45 | NUR ---
OPENING NOTE ASSUMED PT CARE FROM DAY SHIFT NURSE CROW. PT IS A/OX4 LAYING QUIETLY IN BED WITH NO S/S OF DISTRESS OR SOB. PT IS CURRENTLY ON 4L NC, AND TOLERATING IT WELL. DISCUSSED POC WITH PT AND ANSWERED ANY QUESTIONS REGARDING POC. IS CURRENTLY AT BED SIDE. SAFETY MEASURES MAINTAINED WITH SIDE RAILS UP, BED IN LOWEST POSITION AND CALL LIGHT WITHIN REACH. WILL CONTINUE TO MONITOR FOR CHANGES Q1HR AND PRN.
[2018-12-22] MEDS: chlordiazePOXIDE HCL 5 MG CAP PO PRN (21:44)
--- NOTE | 2018-12-22 21:54 | NUR ---
CALL CATHETER EDUCATION SPOKE WITH PT REGARDING THE POSSIBLE REMOVAL OF HIS CALL CATHETER DUE TO HIM INCREASING AMBULATION AND ACTIVITY. SPOKE TO HIM ABOUT THE BENEFITS OF REMOVAL AND THE POSSIBLE USE OF A URINAL INSTEAD OF THE CATHETER. PT STATED THAT HE WISHED TO KEEP THE CALL CATHETER IN AT LEAST UNTIL TOMORROW (12/23/2018), BECAUSE HE STILL FEELS "UNSTABLE" AND "WOULD NOT BE GOING HOME TOMORROW". WILL ENDORSE TO DAY SHIFT AND MONITOR CATHETER AND PTS ACTIVITY.
[2018-12-22 22:34] VITALS: BP 137/98
[2018-12-23] MEDS: ALBUTEROL SULF 2.5 MG/0.5ML(0.5%) NEB SOLN NEB SCH ×5 (00:16→23:44)
[2018-12-23] MEDS: IPRATROPIUM BROM 0.5 MG/2.5ML INH SOL NEB SCH ×3 (00:16→11:06)
--- NOTE | 2018-12-23 04:58 | NUR ---
LOW OXYGENATION SATURATION CUT OUT STITCHER ALERTED ME THAT THE PTS O2 SATURATION WAS 89% ON 4L NC. ASSESSED PT, FOUND HIM SLOUCHING IN BED WITH HIS NC NOT ON PROPERLY. REPOSITIONED PT, ELEVATING HOB TO HIGH FOWLERS AND SCOOTING HIM UP IN BED, REPLACED NC ON PT. O2 SATURATION IS NOW 94% AND PT IS TOLERATING IT WELL AND APPEARS TO BE MORE COMFORTABLE. WILL CONTINUE TO MONITOR FOR CHANGES Q1HR AND PRN.
[2018-12-23 05:53] VITALS: BP 130/88
[2018-12-23 06:47] LABS: Basophils # (auto) 0.1 uL; Basophils % (auto) 0.7 % (0.0-2.0); Eosinophils # (auto) 0.2 uL; Eosinophils % (auto) 3.2 % (0.0-7.0); Hematocrit 43.9 % (41.0-53.0); Hemoglobin 14.5 g/dL (13.5-17.5); Lymphocytes # (auto) 0.5 uL; Lymphocytes % (auto) 6.4 % (10.0-50.0); Mean Corpuscular Hemoglobin 32.8 pg (28.0-32.0); Mean Corpuscular Hgb Conc. 33.1 g/dL (32.0-36.0); Mean Corpuscular Volume 99.1 fL (80.0-100.0); Monocytes # (auto) 0.6 uL; Monocytes % (auto) 7.4 % (0.0-12.0); Neutrophils # (auto) 6.2 uL; Neutrophils % (auto) 82.3 % (37.0-80.0); Nucleated Red Blood Cells % 0.1 %; Platelet Count (auto) 213 10^3/uL (140-450); Red Blood Cells 4.43 10^6/uL (4.5-5.90); Red Cell Distribution Width 18.2 % (11.8-14.3); White Blood Cell 7.5 10^3/uL (4.4-10.8)
[2018-12-23 07:23] LABS: Albumin 2.9 g/dL (3.4-5.0); BUN/Creatinine Ratio 14.9; Bilirubin, Total 0.5 mg/dL (0.2-1.0); Calcium 9.3 mg/dL (8.5-10.1); Potassium 3.8 mmol/L (3.5-5.1); Total Protein 7.4 g/dL (6.4-8.2)
--- NOTE | 2018-12-23 07:36 | NUR ---
Opening Shift Note Assumed care of patient, resting in bed with eyes closed, respirations even and unlabored, connected to O2 via N/C. No S/S of distress/SOB or pain. POC board updated, will continue to monitor for changes Q1hr and PRN.
[2018-12-23 09:00] VITALS: BP 135/80
[2018-12-23] MEDS: DOCUSATE SOD 100 MG CAP PO SCH ×2 (10:00→21:42)
--- NOTE | 2018-12-23 10:00 | NUR ---
bedside. Patient refused PT at this time to rest. Pt will return later.
[2018-12-23] MEDS: LEVOFLOXACIN 250 MG TAB PO SCH (10:56)
[2018-12-23] MEDS: NICOTINE 21MG/24 HR TOPICAL PATCH TD SCH (10:57)
[2018-12-23] MEDS: OMEPRAZOLE 20MG/10ML ORAL SUSP PO SCH ×2 (10:57→21:41)
--- NOTE | 2018-12-23 11:05 | NUR ---
RT AT BEDSIDE FOR BREATHING TREATMENT
--- NOTE | 2018-12-23 11:38 | NUR ---
Nutrition Follow-up Notes Wt.: 127.0 kg Pt's successfully extubated sleeping with no distress noted per nursing when rounded this am. per records pt with PNA tx with ABX. pt is currently on [facility] soft diet with adequate PO of 75% x 6 per RN doc Est. Needs: 1950 kcal to 2500 kcal (14-18 kcal/kgBW), 81 gms to 113 gms pro (1.0-1.4 gms/kgIBW: 81 kg for wound healing). Will continue to monitor pertinent labs and reassess nutrient need prn Labs: GLU 114 H, ALB 2.9 L. Skin: Gadiel scale 20, low risk, pt's L, R lower extremities 2 open spots/cellulitis per show host or hostess. Pls refer to provider network analyst's notes for further details re: tx plans. GI: Pt had 1 BM yesterday per show host or hostess. PES: Altered nutrition related lab values r/t acute/chronic medical condition aeb hyperglycemia, hypercapnia, hyperkalemia, elev. Cr, Phos, Uric acid Partially resolved: Increased nutrient needs r/t current/chronic medical condition aeb intubated, sedated, wound healing, NPO. Obesity r/t food intake more than body requirement aeb 172% IBW, BMI 41.7 kg/m2 and increased body adiposity Will continue to monitor PO intake, skin status, pertinent labs and weight trend. F/u in 3-5 days. Rec.: 1.) continue assistance with meals. 2) Consider daily MVI with minerals and Asc acid 500 mgs BID prn. 3.) Refer to RD for further nutrition education and weight monitoring upon discharged. 4.) Continue current plan of care.
[2018-12-23 13:00] VITALS: BP 144/71
--- NOTE | 2018-12-23 15:45 | NUR ---
MD rounding on patient. Breathing treatments will be changed by MD per pt request.
--- NOTE | 2018-12-23 16:00 | NUR ---
WOUND CARE Wound care provided as ordered with at bedside. Provided verbal and demo education. Supplies given to patient for home wound care.
[2018-12-23] MEDS: BUDESONIDE (INHALATION) 0.5 MG/2 ML NEB NEB SCH (18:45)
--- NOTE | 2018-12-23 19:30 | NUR ---
OPENING NOTE Received report from day shift RN. Patient is A&O X's 4 with no s/s of distress noted at this time. Patient is receiving 4L O2 via N.C. IS is at bedside. Educated patient on POC and to use call light when in need of assistance. Patient verbalized understanding. Patient's is at bedside. Patient was repositioned. Bed is in lowest/locked position with side rails up X's 2 and call light is within reach of patient. Will continue to monitor for changes and round hourly/PRN.
[2018-12-23] MEDS: chlordiazePOXIDE HCL 5 MG CAP PO PRN (21:41)
[2018-12-23 21:58] VITALS: BP 141/78
--- NOTE | 2018-12-23 23:54 | NUR ---
Respiratory note: PT REQUESTED TO REMAIN SITTING UP IN BED AFTER MED NEB TX, TOLERATED WELL. NO ADVERSE REACTIONS NOTED. PT REFUSED BIPAP AT THIS TIME. WILL CONTINUE TO MONITOR.
[2018-12-24 05:47] VITALS: BP 146/82
--- NOTE | 2018-12-24 06:02 | NUR ---
PATIENT SITTING IN CHAIR AT BEDSIDE Patient sitting in chair at bedside. Patient had minimal assistance transferring from bed to chair. He was able to use his walker. Placed bedside table in front of patient for safety. Call light and personal items are within reach of patient. Educated patient to use call light when wanting to get back into bed, feels SOB, or for any other assistance. Patient verbalized understanding. Patient is A&O X's 4 with no s/s of distress at this time Will continue to monitor for changes and round hourly/PRN. Partial linen change done at this time.
[2018-12-24] MEDS: BUDESONIDE (INHALATION) 0.5 MG/2 ML NEB NEB SCH ×2 (06:04→18:20)
[2018-12-24] MEDS: ALBUTEROL SULF 2.5 MG/0.5ML(0.5%) NEB SOLN NEB SCH ×3 (06:04→18:20)
--- NOTE | 2018-12-24 06:39 | NUR ---
PATIENT BACK INTO BED Patient transferred back into bed using walker. Patient tolerated transfer well. Bed is in lowest/locked position with side rails up X's 2 and call light is within reach of patient.
--- NOTE | 2018-12-24 07:35 | NUR ---
OPENING SHIFT NOTE PATIENT IN BED WITH EYES CLOSED COMFORTABLY CHEST RISE AND FALL VISUALIZED. BED IS IN LOWEST LOCKED POSITION CALL LIGHT WITHIN REACH. BOARD UPDATED. WILL CONTINUE TO MONITOR
[2018-12-24 07:46] LABS: Basophils # (auto) 0.1 uL; Basophils % (auto) 0.9 % (0.0-2.0); Eosinophils # (auto) 0.3 uL; Eosinophils % (auto) 4.2 % (0.0-7.0); Hematocrit 43.4 % (41.0-53.0); Hemoglobin 14.3 g/dL (13.5-17.5); Lymphocytes # (auto) 0.6 uL; Lymphocytes % (auto) 8.6 % (10.0-50.0); Mean Corpuscular Hemoglobin 32.5 pg (28.0-32.0); Mean Corpuscular Volume 98.7 fL (80.0-100.0); Monocytes # (auto) 0.5 uL; Monocytes % (auto) 7.5 % (0.0-12.0); Neutrophils # (auto) 5.3 uL; Neutrophils % (auto) 78.8 % (37.0-80.0); Platelet Count (auto) 208 10^3/uL (140-450); Red Cell Distribution Width 18.1 % (11.8-14.3); White Blood Cell 6.8 10^3/uL (4.4-10.8)
[2018-12-24 07:47] LABS: BUN/Creatinine Ratio 13.3; Calcium 9.3 mg/dL (8.5-10.1)
[2018-12-24 08:00] VITALS: BP 102/60
--- NOTE | 2018-12-24 08:50 | NUR ---
PATIENT UP IN CHAIR INSISTS ON ASSISTING PATIENT TO SIT UP IN CHAIR. INSTRUCTED AND PATIENT ON SAFETY CONCERNS/RISK AND TO CALL RN OR PT FOR ASSISTANCE. PATIENT AND VERBALIZED UNDERSTANDING WILL CONTINUE TO MONITOR
--- NOTE | 2018-12-24 09:06 | NUR ---
called LEANDRA Salazar for BC and she stated she needs a list of snfs we called that could not take pt and that she will look at [facility] for [facility]
--- NOTE | 2018-12-24 09:44 | NUR ---
Received referral to determine if pt would like to return home or be placed in a Snf. Son, Cosme prefers the pt to return home. The son stated the [facility] will follow pt.
[2018-12-24] MEDS: DOCUSATE SOD 100 MG CAP PO SCH ×2 (10:00→22:00)
[2018-12-24] MEDS: LEVOFLOXACIN 250 MG TAB PO SCH (11:00)
[2018-12-24] MEDS: NICOTINE 21MG/24 HR TOPICAL PATCH TD SCH (11:02)
[2018-12-24] MEDS: OMEPRAZOLE 20MG/10ML ORAL SUSP PO SCH ×2 (11:07→22:16)
[2018-12-24 12:00] VITALS: BP 105/45
--- NOTE | 2018-12-24 13:00 | NUR ---
HOSPITALIST AT BEDSIDE AMEYA AT BEDSIDE PATIENT ALERT AND ORIENTED X4. WILL CARRY OUT ORDERS INSTRUCTED
[2018-12-24] MEDS ORDERED: TEMAZEPAM 15 MG CAP PO PRN (13:15)
--- NOTE | 2018-12-24 14:05 | NUR ---
New orders placed by . Brooke AREVALO has ordered home 02 and Leana VENEGAS will order 02 concentrator and 02 tubing for pt as well as already getting Gracelight for pt and working on getting hospital bed
[2018-12-24] MEDS: HYDROcodone-ACET 5/325MG TAB PO PRN ×2 (15:19→22:16)
--- NOTE | 2018-12-24 15:40 | NUR ---
SPOKE TO CHRIS VIA TELEPHONE CHRIS STATED THE BED AND HOME OXYGEN CONCENTRATOR WILL BE DELIVERED UPON DISCHARGE. DR HOU MADE AWARE. PATIENTS MADE AWARE. PATIENT IS MAKING THE PHONE CALL TO SEE THE TIME FRAME IN WHICH THE ITEMS CAN BE DELIVERED. WILL CONTINUE TO MONITOR
--- NOTE | 2018-12-24 16:18 | NUR ---
HOSPITALIST AT BEDSIDE DR HOU PUT IN DISCHARGE ORDER HOWEVER VERBALIZED THAT ONLY DISCHARGE PATIENT IF HOME OXYGEN CONCENTRATOR ARRIVES AT PATIENTS HOME, OTHER GASTELUM TO PUT A HOLD OR D/C TILL THEN
--- NOTE | 2018-12-24 17:18 | NUR ---
Per RUBI consult for physical therapy, possible hospital bed for home. Contacted [facility] for update on PT acceptance. Per Thais from [facility] Pt has been accepted and service to start within 48 hours of d/c. Per Thasi from [employer] authorization for insurance was given to her. Contacted [facility] Ph: ) faxed medical records. Per Rebecca equipment has been approved oxygen portable was deliver at bed side and concentrator and hospital bed to be deliver at home. Informed BABAK Serna. Addendum: 12/24/18 at 1724 by CHRIS VENEGAS Amended: Links added.
--- NOTE | 2018-12-24 18:53 | NUR ---
END OF SHIFT NOTE PATIENT ALERT AND ORIENTED X4, AT BEDSIDE. PATIENT DENIES ANY DISTRESS OR SOB AT THIS TIME. BED IS IN LOWEST LOCKED ENDORSED CARE TO STEFFANY HILLIARD
--- NOTE | 2018-12-24 19:20 | NUR ---
Opening Shift Note Assumed care of patient, awake and alert. No S/S of distress/SOB or pain. Family at bedside. Instructed on POC and to call for assist PRN, will continue to monitor for changes Q1hr and PRN. Waiting for Home O2 delivery for pending discharge.
--- NOTE | 2018-12-24 19:30 | NUR ---
Patient on the line with [facility] regarding Home O2 delivery. Explained to her that she needs to be at home for the delivery. She stated that she is waiting for their call because she lives 10 mins away.
--- NOTE | 2018-12-24 20:00 | NUR ---
Called [facility] to verify delivery as delivery time was from 5-9 pm. They stated that they already attempted to deliver. Also transferred call to patient family and will arrange delivery again.
[2018-12-24 22:00] VITALS: BP 125/66
--- NOTE | 2018-12-24 22:44 | NUR ---
Spoke to Leigh and she confirmed that oxygen was being delivered now. Explained to patient regarding discharge and she stated that she will come after they finish with the delivery.
--- NOTE | 2018-12-25 00:11 | NUR ---
Patient Leigh returned to the hospital and upset that due to the late arrival of the oxygen, she has difficulty driving at night and will not have help to take patient out of car and into bed at home. Spoke to charge nurse and paged hospitalist.
--- NOTE | 2018-12-25 00:13 | NUR ---
Received new orders to hold d/c for am.
[2018-12-25] MEDS: ALBUTEROL SULF 2.5 MG/0.5ML(0.5%) NEB SOLN NEB SCH ×2 (01:14→06:19)
[2018-12-25 03:03] VITALS: BP 125/66
[2018-12-25 05:00] VITALS: BP 123/72
[2018-12-25] MEDS: BUDESONIDE (INHALATION) 0.5 MG/2 ML NEB NEB SCH (06:19)
--- NOTE | 2018-12-25 07:45 | NUR ---
OPENING SHIFT NOTE PATIENT IN CHAIR WITH EYES CLOSED. CHEST RISE AND FALL VISUALIZED, SHOWING NO S.S OF DISTRESS. BOARD UPDATED. CALL LIGHT WITH IN REACH WILL CONTINUE TO MONITOR
[2018-12-25 08:00] VITALS: BP 154/94
--- NOTE | 2018-12-25 08:55 | NUR ---
DISCHARGE NOTE PATIENT ALERT AND ORIENTED X4 AT BEDSIDE. ALL DISCHARGE INSTRUCTIONS GIVEN ALL QUESTIONS AND CONCERNS ADDRESSED/ANSWERED. PATIENT VERBALIZED UNDERSTANDING. PATIENT DENIES FEELING ANY PAIN DISTRESS OR SOB. ASSISTED OUT TO PERSONAL VEHICLE USING WHEEL CHAIR. IV REMOVED CATHETER INTACT PRESSER DRESSING APPLIED. TELE REMOVED AND CLEANED AND RETURNED TO [facility].
== END 2018-12-25 11:18 | disposition home health service (06) | DRG 207 ==
LOC: ER 11:47 → TELE 18:47 → TELE-CENTR 20:10 → ICU WEST 12-10 04:05 → EAST 12-17 13:40 → TELE-EAST 12-17 13:52
PROVIDERS: ADMIT Nurse Practitioner Acute Care; ATTEND Internal Medicine
PROC: 5A1955Z Respiratory Ventilation, Greater than 96 Consecutive Hours (ICD-10-PCS; principal; 2018-12-10)
PROC: 0BH17EZ Insertion of Endotracheal Airway into Trachea, Via Natural or Artificial Opening (ICD-10-PCS; 2018-12-10)
PROC: 0DJ08ZZ Inspection of Upper Intestinal Tract, Via Natural or Artificial Opening Endoscopic (ICD-10-PCS; 2018-12-14)
PROC: 5A09357 Assistance with Respiratory Ventilation, Less than 24 Consecutive Hours, Continuous Positive Airway Pressure (ICD-10-PCS; 2018-12-18)
PROC: 5A09357 Assistance with Respiratory Ventilation, Less than 24 Consecutive Hours, Continuous Positive Airway Pressure (ICD-10-PCS; 2018-12-19)
DX: J96.21 Acute and chronic respiratory failure with hypoxia (principal); G93.41 Metabolic encephalopathy; J18.0 Bronchopneumonia, unspecified organism; N17.0 Acute kidney failure with tubular necrosis; E87.1 Hypo-osmolality and hyponatremia; I13.0 Hypertensive heart and chronic kidney disease with heart failure and stage 1 through stage 4 chronic kidney disease, or unspecified chronic kidney disease; J44.0 Chronic obstructive pulmonary disease with (acute) lower respiratory infection; J44.1 Chronic obstructive pulmonary disease with (acute) exacerbation; J98.11 Atelectasis; L03.115 Cellulitis of right lower limb; L03.116 Cellulitis of left lower limb; K92.2 Gastrointestinal hemorrhage, unspecified; T39.395A Adverse effect of other nonsteroidal anti-inflammatory drugs [NSAID], initial encounter; X58.XXXD Exposure to other specified factors, subsequent encounter; K29.00 Acute gastritis without bleeding; E66.01 Morbid (severe) obesity due to excess calories; J96.22 Acute and chronic respiratory failure with hypercapnia; E11.22 Type 2 diabetes mellitus with diabetic chronic kidney disease; E78.5 Hyperlipidemia, unspecified; E87.5 Hyperkalemia; E78.00 Pure hypercholesterolemia, unspecified; F10.10 Alcohol abuse, uncomplicated; F17.210 Nicotine dependence, cigarettes, uncomplicated; I50.9 Heart failure, unspecified; N18.3 Chronic kidney disease, stage 3 (moderate); S81.801D Unspecified open wound, right lower leg, subsequent encounter; S81.802D Unspecified open wound, left lower leg, subsequent encounter; Z79.899 Other long term (current) drug therapy; Z68.38 Body mass index [BMI] 38.0-38.9, adult; Y92.89 Other specified places as the place of occurrence of the external cause
CPT/HCPCS: 36415; 36600; 71045; 71046; 71275; 76775; 80048; 80053; 80061; 80202; 80307; 81001; 82306; 82565; 82570; 82805; 82962; 83036; 83735; 83880; 83970; 84100; 84132; 84300; 84443; 84484; 84550; 85014; 85018; 85025; 85379; 85610; 85730; 87040; 87070; 87081; 87205; 92610; 93005; 94002; 94003; 94640; 94644; 94660; 94761; 96365; 96375; 97110; 97116; 97530; A4565; A4618; C9113; G0378; J0330; J0610; J0696; J1815; J2250; J2405; J2543; J2704; J3480; J3490; J7060

== ENCOUNTER 2018-12-31 18:24 | Emergency (ER) | payer BC ==
[~2018-12-31] VITALS: Ht 182.9 cm; Wt 81.6 kg
[~2018-12-31 18:24] MED LIST changes: +CLIN150C PO; +FURO40TA4 PO; -LISI-275 PO; +MELO1TAB56 PO; +METO-169 PO; +SPIR50TA5 PO
[2018-12-31 19:21] LABS: Basophils # (auto) 0 uL; Basophils % (auto) 0.7 % (0.0-2.0); Eosinophils # (auto) 0.2 uL; Eosinophils % (auto) 3.2 % (0.0-7.0); Hematocrit 43.6 % (41.0-53.0); Hemoglobin 14.2 g/dL (13.5-17.5); Lymphocytes # (auto) 0.6 uL; Mean Corpuscular Hemoglobin 31.4 pg (28.0-32.0); Mean Corpuscular Hgb Conc. 32.5 g/dL (32.0-36.0); Mean Corpuscular Volume 96.8 fL (80.0-100.0); Monocytes # (auto) 0.7 uL; Monocytes % (auto) 12.3 % (0.0-12.0); Neutrophils # (auto) 3.9 uL; Neutrophils % (auto) 72.8 % (37.0-80.0); Nucleated Red Blood Cells % 0.1 %; Platelet Count (auto) 183 10^3/uL (140-450); Red Cell Distribution Width 18.2 % (11.8-14.3); White Blood Cell 5.3 10^3/uL (4.4-10.8)
[2018-12-31 19:44] LABS: Albumin 2.9 g/dL (3.4-5.0); Anion Gap 3 (5-15); Blood Urea Nitrogen 33 mg/dL (7-18); Calcium 8.8 mg/dL (8.5-10.1); Carbon Dioxide 34 mmol/L (21-32); Chloride 100 mmol/L (98-107); Glucose 84 mg/dL (74-106); Magnesium 2.1 mg/dL (1.6-2.6); Potassium 4.2 mmol/L (3.5-5.1); Sodium 137 mmol/L (136-145)
[2018-12-31 19:50] LABS: Alanine Aminotransferase 25 U/L (16-61); Alkaline Phosphatase 79 U/L (45-117); Aspartate Aminotransferase 27 U/L (15-37); BUN/Creatinine Ratio 19.8; Bilirubin, Total 0.3 mg/dL (0.2-1.0); GFR African American 54 mL/min; GFR Non-African American 44 mL/min; Total Protein 6.7 g/dL (6.4-8.2)
[2018-12-31 21:19] LABS: Urine Bacteria NONE SEEN /hpf (None Seen); Urine Blood Negative /uL (Negative); Urine Specific Gravity 1.016 (1.001-1.035); Urine WBC 5 /hpf (0 - 3)
[2018-12-31] MEDS ORDERED: KETOROLAC TROMETH 15 mg/ml 1ML VL IV ONE (23:00)
[2018-12-31] MEDS ORDERED: HYDROcodone-ACET 5/325MG TAB PO ONE (23:00)
[2018-12-31] MEDS ORDERED: LEVOFLOXACIN 750MG 150 ML IV ONE (23:00)
[2019-01-01 01:00] VITALS: BP 102/54
== END 2019-01-01 01:47 | disposition home or self-care (01) ==
LOC: ER 18:25
DX: A41.9 Sepsis, unspecified organism (principal); S13.9XXD Sprain of joints and ligaments of unspecified parts of neck, subsequent encounter; J18.9 Pneumonia, unspecified organism; I13.0 Hypertensive heart and chronic kidney disease with heart failure and stage 1 through stage 4 chronic kidney disease, or unspecified chronic kidney disease; N18.9 Chronic kidney disease, unspecified; I50.9 Heart failure, unspecified; F17.210 Nicotine dependence, cigarettes, uncomplicated; Z90.89 Acquired absence of other organs; X58.XXXD Exposure to other specified factors, subsequent encounter
CPT/HCPCS: 36415; 71045; 80053; 81001; 83735; 84484; 85025; 87040; 87086; 93005; 96365; 96366; 96375; 99284; J1885; J1956